=== PATIENT | female | born 1940 | race Caucasian/White ===

== ENCOUNTER 2017-03-19 13:29 | Day surgery (SDC) | payer MEDICARE, OTHER ==
[~2017-03-19 13:29] MED LIST: DIPHENHYDRAMINE HCL 50 MG/ML VIAL ONE; EPINEPHRINE INJ 1 MG/10 ML DISP.SYRIN ONE; FENTANYL CITRATE INJ/PF 100 MCG/2 ML AMPUL ONE; FLUMAZENIL INJ 0.5 MG/5 ML VIAL ONE; GLUCAGON,HUMAN RECOMB 1 MG INJ ONE; NALOXONE HCL INJ/PF 0.4 MG/1 ML SDV ONE; ONDANSETRON HCL INJ/PF 4 MG/2 ML SDV ONE
[2017-03-19] MEDS: MIDAZOLAM 2 MG/2 ML INJ ONE ×2 (14:02→14:06)
--- NOTE | 2017-03-19 14:13 | Operative Report ---
Operative Report DATE OF SURGERY: 03/19/17 Operative Report: The risks benefits and alternatives of the procedure explained to the patient in detail and informed consent is obtained.A GIF Olympus video scope was inserted into the patient's mouth and hypopharynx, the esophagus is identified intubated and insufflated, the scope was then advanced through the esophagus stomach and duodenum ,retroflexion maneuver is done, the esophagus stomach and first and second portions of the duodenum examined PREOPERATIVE DIAGNOSIS: Epigastric pain POSTOPERATIVE DIAGNOSIS: Gastritis, duodenitis. Biopsies obtained to rule out for Helicobacter pylori OPERATION: EGD with biopsy SURGEON: TIERNEY COLBY ANESTHESIA: Moderate Sedation - 4 mg of Versed, 25 mcg of fentanyl. Conscious sedation monitoring time 30 minutes TISSUE REMOVED OR ALTERED: Gastric mucosal specimen obtained to rule out Helicobacter pylori COMPLICATIONS: None. ESTIMATED BLOOD LOSS: None. INTRAOPERATIVE FINDINGS: As described above. PROCEDURE: Patient tolerated the procedure well. No immediate postprocedure complications are noted. Patient discharged in good condition. Discharge date 03/19/2017. Discharge diet: Regular. Discharge activity: Regular. 2-3 week follow-up to discuss findings. Patient is instructed to call the office or proceed to the emergency room should there be any further problems or questions. We will wait on biopsies.
[2017-03-19 15:08] VITALS: BP 107/56
== END 2017-03-19 15:20 | disposition home or self-care (01) ==
LOC: END 13:29
PROVIDERS: ATTEND Internal Medicine Gastroenterology
PROC: 0DB68ZX Excision of Stomach, Via Natural or Artificial Opening Endoscopic, Diagnostic (ICD-10-PCS; principal; 2017-03-19 14:00)
DX: K31.7 Polyp of stomach and duodenum (principal); K29.70 Gastritis, unspecified, without bleeding; K29.80 Duodenitis without bleeding; I10 Essential (primary) hypertension; Z79.899 Other long term (current) drug therapy; Z87.891 Personal history of nicotine dependence; Z79.82 Long term (current) use of aspirin; Z79.51 Long term (current) use of inhaled steroids
CPT/HCPCS: 43239; 96375; 88342 ×2; 88305 ×2; J2250; J3010; J0171; J1200; J1610; J2310; J2405; J3490

== ENCOUNTER 2017-10-30 16:47 | Emergency (ER) | payer MEDICARE, OTHER ==
[2017-10-30] MEDS ORDERED: ALBUTEROL SULFATE 0.083% NEB 2.5 MG/3 ML AMPUL NEB ONE (16:58)
--- NOTE | 2017-10-30 17:07 | ER Document Report ---
ED Respiratory Problem - General Chief Complaint: Shortness Of Breath Stated Complaint: DIFFICULTY BREATHING Time Seen by Provider: 10/30/17 16:57 Notes: The patient is a 77-year-old female, past medical history COPD, CHF, chronic pain, presents with 2 days of increasing shortness of breath and wheezing. When EMS arrived, she was tachypneic and appeared dusky. She was placed on CPAP and given 3 duonebs, 125 mg Solu-Medrol and 2 g magnesium with some improvement of her tachypnea. Patient denies chest pain, leg swelling, nausea, vomiting, fevers, back pain, abdominal pain or rash. TRAVEL OUTSIDE OF THE [place] IN LAST 30 DAYS: No - Related Data Allergies/Adverse Reactions: No Known Allergies Allergy (Verified 10/30/17 17:19) Past Medical History - General Information source: Patient - Social History Smoking Status: Unknown if Ever Smoked Family History: Reviewed & Not Pertinent - Past Medical History Cardiac Medical History: Reports: Hx Atrial Fibrillation, Hx Heart Attack, Hx Hypercholesterolemia, Hx Hypertension - medicated Denies: Hx Coronary Artery Disease Pulmonary Medical History: Reports: Hx Bronchitis, Hx COPD, Hx Pneumonia - 2015 Denies: Hx Asthma Neurological Medical History: Denies: Hx Cerebrovascular Accident, Hx Seizures Malignancy Medical History: Reports: Hx Cervical Cancer GI Medical History: Reports: Hx Gastroesophageal Reflux Disease, Hx Ulcer. Denies: Hx Hepatitis, Hx Hiatal Hernia Musculoskeltal Medical History: Reports Hx Arthritis Psychiatric Medical History: Reports: Hx Depression Infectious Medical History: Denies: Hx Hepatitis Past Surgical History: Reports: Hx Abdominal Surgery - mesenteric bypass, Hx Appendectomy, Hx Cardiac Surgery - Stent, Hx Cholecystectomy, Hx Genitourinary Surgery - lower intestine gortex replacement, Hx Orthopedic Surgery - right shoulder sx, bilateral foot sx for spurs. Denies: Hx Hysterectomy, Hx Mastectomy, Hx Open Heart Surgery, Hx Pacemaker - Immunizations Hx Diphtheria, Pertussis, Tetanus Vaccination: No Hx Pneumococcal Vaccination: 07/01/10 Review of Systems - Review of Systems Notes: REVIEW OF SYSTEMS: CONSTITUTIONAL: -fevers, -chills EENT: -eye pain, -difficulty swallowing, -nasal congestion CARDIOVASCULAR: -chest pain, -syncope. RESPIRATORY: +cough, +SOB GASTROINTESTINAL: -abdominal pain, -nausea, -vomiting, -diarrhea GENITOURINARY: -dysuria, -hematuria MUSCULOSKELETAL: -back pain, -neck pain SKIN: -rash or skin lesions. HEMATOLOGIC: -easy bruising or bleeding. LYMPHATIC: -swollen, enlarged glands. NEUROLOGICAL: -altered mental status or loss of consciousness, -headache, - neurologic symptoms PSYCHIATRIC: -anxiety, -depression. ALL OTHER SYSTEMS REVIEWED AND NEGATIVE. Physical Exam - Vital signs Vitals: Pulse BP Pulse Ox 113 H 117/70 100 10/30/17 16:55 10/30/17 16:55 10/30/17 16:55 - Notes Notes: PHYSICAL EXAMINATION: GENERAL: Moderate respiratory distress. HEAD: Atraumatic, normocephalic. EYES: Pupils equal round and reactive to light, extraocular movements intact, sclera anicteric, conjunctiva are normal. ENT: nares patent, oropharynx clear without exudates. Moist mucous membranes. NECK: Normal range of motion, supple without lymphadenopathy LUNGS: Tachypnea, diffuse wheezing, speaking in 2 word sentences. HEART: Irregularly, irregular rhythm. ABDOMEN: Soft, nontender, normoactive bowel sounds. No guarding, no rebound. No masses appreciated. EXTREMITIES: Normal range of motion, no pitting or edema. No cyanosis. NEUROLOGICAL: Cranial nerves grossly intact. Normal speech. Normal sensory and motor exams. PSYCH: Normal mood, normal affect. SKIN: Warm, Dry, normal turgor, no rashes or lesions noted. Course - Re-evaluation Re-evalutation: Patient found to be in respiratory distress with diffuse wheezing. She was switched from CPAP to BiPAP with some improvement of her symptoms. She received Solu-Medrol, magnesium and 3 duonebs by EMS prior to arrival. Patient was switched off BiPAP to 2 L nasal cannula, which she sometimes wears at home, without any respiratory distress. Her lung sounds are completely clear she is not tachypneic. Patient is tachycardic after her multiple beta- agonists. Provided her a home dose of her metoprolol for her A. fib. Offered patient admission, but she is adamant that she does not want to stay. Her blood work is unremarkable and chest x-ray does not show an infiltrate. She has an appointment with her primary care physician tomorrow morning. With her well appearance after the breathing treatments, will discharge patient home with very strict return precautions. She is mildly tachycardic to the low 100s on discharge, which is most likely related to the albuterol. Considered PE, but less likely with complete resolution of her dyspnea after her COPD treatments. Instructed her to use albuterol every 2 hours as needed and continue her steroids. She will take her metoprolol in the morning and have her heart rate rechecked at the primary care office. - Vital Signs Vital signs: Temp Pulse Resp BP Pulse Ox 98.9 F 113 H 21 H 98/78 L 97 10/30/17 17:00 10/30/17 16:55 10/30/17 20:01 10/30/17 20:01 10/30/17 20:01 - Laboratory Result Diagrams: 10/30/17 16:59 10/30/17 16:59 Laboratory results interpreted by me: 10/30/17 10/30/17 10/30/17 16:59 16:59 17:38 WBC 12.0 H Hgb 11.3 L Hct 34.1 L Seg Neutrophils % 79.1 H Lymphocytes % 11.6 L Absolute Neutrophils 9.5 H Sodium 133.1 L Chloride 91 L BUN 39 H Est GFR ( Amer) 58 L Est GFR (Non-Af Amer) 48 L Glucose 121 H POC Glucose 126 H Direct Bilirubin 0.6 H Urine Protein Urine Blood Ur Leukocyte Esterase 10/30/17 19:59 WBC Hgb Hct Seg Neutrophils % Lymphocytes % Absolute Neutrophils Sodium Chloride BUN Est GFR ( Amer) Est GFR (Non-Af Amer) Glucose POC Glucose Direct Bilirubin Urine Protein 30 H Urine Blood SMALL H Ur Leukocyte Esterase TRACE H - Diagnostic Test Radiology reviewed: Image reviewed, Reports reviewed Radiology results interpreted by me: CXR: NAD Discharge - Discharge Clinical Impression: COPD with exacerbation Condition: Stable Disposition: HOME, SELF-CARE Additional Instructions: BRONCHITIS WITH BRONCHOSPASM (WHEEZING): You have bronchitis with bronchospasm (wheezing). Sometimes people develop wheezing with a chest cold. This occurs either because of an underlying tendency toward asthma or because the virus itself irritates the bronchial tubes. This irritation causes cough, shortness of breath, and wheezing. Emergency treatment of bronchospasm may include adrenaline shots or bronchodilator aerosol. You may feel lightheaded and have a rapid pulse for an hour or two. Rest and get plenty of fluids. At home, we'll treat you with a bronchodilator inhaler. Corticosteroids may be required for some patients. Until you recover, avoid chemical fumes, dusts, pollens, and exercising in very cold or dry air. If you smoke, stop now! Most cases of bronchitis get better without antibiotics. We prescribe antibiotics when we believe bacteria are damaging your airways, or if there's high risk the bronchitis will worsen into pneumonia. Increase your fluid intake. A cool mist humidifier may make your lungs more comfortable. An expectorant (cough medicine that loosens phlegm) can help. Repeated episodes of bronchitis and bronchospasm may result in lung damage -- for example, chronic bronchitis, recurrent pneumonias, or emphysema. If you develop a fever, increased wheezing, chest pain, or severe shortness of breath, you should contact the doctor immediately. INHALED BRONCHODILATORS: You have received a treatment of and/or prescription for an inhaled bronchodilator -- a medication which stimulates the airways in the lung to dilate. This improves the flow of air in asthma, bronchitis, and emphysema. These medicines have some similarity to adrenaline, and can cause similar side effects: shakiness, racing heart, and a sense of nervousness. These side effects decrease with time. Contact your doctor if these side effects are severe. Do not over-use the medicine. Too-frequent use of the inhaler may make it ineffective. Call your doctor if the inhaler is not controlling your symptoms at the prescribed doses. STEROID MEDICATION: You have been given an injection of or oral medicine of the cortisone/ steroid class. This medication is used to control inflammation or allergy. Magdaleno t is usually only given for a short period of time, until the acute process subsides. There are usually no side effects from short-term use of cortisone-like medications. Some persons feel an increased sense of well-being and are not sleepy at bedtime. Long-term use of cortisone medications is best avoided, unless required for a severe condition. If your condition does not remit, or relapses after the course of corticosteroid medication, you should consult your physician. USE OF ACETAMINOPHEN (Tylenol): Acetaminophen may be taken for pain relief or fever control. It's much safer than aspirin, offering a wider range of "safe" dosages. It is safe during . Some brand names are Tylenol, Panadol, Datril, Anacin 3, Tempra, and Liquiprin. Acetaminophen can be repeated every four hours. The following are maximum recommended dosages: >89 pounds or adults 650 mg to 900 mg Acetaminophen can be repeated every four hours. Maximum dose not to exceed 4000 mg a day. SMOKING: If you smoke, you should stop smoking. The tar and chemicals in cigarette smoke are harmful. Smoking has been shown to cause: emphysema chronic bronchitis lung cancer mouth and throat cancer stomach and pancreas cancer premature aging defects In addition, smoking increases ear and lung infections in children of smokers. FOLLOW-UP CARE: If you have been referred to a physician for follow-up care, call the physician s office for an appointment as you were instructed or within the next two days. If you experience worsening or a significant change in your symptoms, notify the physician immediately or return to the Emergency Department at any time for re-evaluation. Prescriptions: Albuterol Sulfate [Proair HFA Inhalation Aerosol 8.5 gm MDI] 2 puff IH Q4H PRN # 1 mdi PRN Reason: Prednisone [Deltasone 10 mg Tablet] 10 mg PO ASDIR PRN #21 tablet PRN Reason:
[2017-10-30 17:16] LABS: VENOUS BLOOD HCO3 27.6 mmol/L (20-32); VENOUS BLOOD PCO2 47.9 mmHg (35-63); VENOUS BLOOD PH 7.38 (7.30-7.42)
[2017-10-30 17:25] LABS: ABSOLUTE LYMPHOCYTES (AUTO) 1.4 10^3/uL (0.5-4.7); ABSOLUTE MONOCYTES (AUTO) 1.1 10^3/uL (0.1-1.4); ABSOLUTE NEUT (AUTO) 9.5 10^3/uL (1.7-8.2); BASOPHILS % (AUTO) 0.1 % (0-2); EOSINOPHILS % (AUTO) 0.3 % (0-6); HEMATOCRIT 34.1 % (36.0-47.0); HEMOGLOBIN 11.3 g/dL (12.0-15.5); LYMPHOCYTES % (AUTO) 11.6 % (13-45); MEAN CORPUSCULAR HEMOGLOBIN 29.3 pg (27.0-33.4); MEAN CORPUSCULAR VOLUME 89 fl (80-97); MONOCYTES % (AUTO) 8.9 % (3-13); PLATELET COUNT 185 10^3/uL (150-450); RED BLOOD COUNT 3.84 10^6/uL (3.72-5.28); RED CELL DISTRIBUTION WIDTH 13.3 % (11.5-14.0); SEGMENTED NEUTROPHILS % (AUTO) 79.1 % (42-78); TOTAL CELLS COUNTED % (AUTO) 100 %
[2017-10-30 17:33] LABS: INTERNATIONAL RATION (INR) 1.13; PROTHROMBIN TIME 15.1 SEC (11.4-15.4)
[2017-10-30 17:34] LABS: ALANINE AMINOTRANSFERASE 25 U/L (9-52); ALBUMIN 3.9 g/dL (3.5-5.0); ALKALINE PHOSPHATASE 101 U/L (38-126); ANION GAP 13 (5-19); ASPARTATE AMINO TRANSFERASE 20 U/L (14-36); BILIRUBIN,DIRECT 0.6 mg/dL (0.0-0.4); BILIRUBIN,TOTAL 0.6 mg/dL (0.2-1.3); BLOOD UREA NITROGEN 39 mg/dL (7-20); CARBON DIOXIDE 29 mmol/L (22-30); CHLORIDE 91 mmol/L (98-107); GLUCOSE 121 mg/dL (75-110); POTASSIUM 4.5 mmol/L (3.6-5.0); SODIUM 133.1 mmol/L (137-145); TOTAL PROTEIN 7.5 g/dL (6.3-8.2)
--- NOTE | 2017-10-30 17:44 | RADIOLOGY REPORT (SQ) ---
EXAM DESCRIPTION: CHEST SINGLE VIEW portable COMPLETED DATE/TIME: 10/30/2017 5:29 pm REASON FOR STUDY: SOB COMPARISON: 07/23/2015 EXAM PARAMETERS: NUMBER OF VIEWS: One view. TECHNIQUE: Single frontal radiographic view of the chest acquired. Portable RADIATION DOSE: NA LIMITATIONS: None. FINDINGS: LUNGS AND PLEURA: No opacities, masses or pneumothorax. No pleural effusion. MEDIASTINUM AND HILAR STRUCTURES: No masses. Contour normal. HEART AND VASCULAR STRUCTURES: Heart normal in size. Normal vasculature. BONES: No acute findings. HARDWARE: None in the chest. OTHER: No other significant finding. IMPRESSION: NO ACUTE RADIOGRAPHIC FINDING IN THE CHEST. TECHNICAL DOCUMENTATION: JOB ID: [id number] [employer]- All Rights Reserved Reading location - IP/workstation name: [email or web address]
[2017-10-30] MEDS ORDERED: NORMAL SALINE 500 ML IV ONE (19:02)
[2017-10-30] MEDS ORDERED: METOPROLOL TARTRATE 50 MG TABLET PO ONE (19:30)
[2017-10-30] MEDS ORDERED: METOPROLOL TARTRATE PF/INJ 5 MG/5 ML SDV IV ONE (19:31)
[2017-10-30 20:32] LABS: APPEARANCE,URINE SLIGHTLY-CLOUDY; BILIRUBIN,URINE NEGATIVE (NEGATIVE); COLOR,URINE YELLOW; GLUCOSE, URINE NEGATIVE (NEGATIVE); KETONES,URINE NEGATIVE (NEGATIVE); LEUKOCYTE ESTERASE,URINE TRACE (NEGATIVE); NITRITE,URINE NEGATIVE (NEGATIVE); PROTEIN,URINE 30 mg/dL (NEGATIVE); URINE SPECIFIC GRAVITY 1.015; UROBILINOGEN,URINE NEGATIVE mg/dL (<2.0)
[2017-10-30 21:25] VITALS: BP 124/62
--- NOTE | 2017-10-30 23:42 | EKG REPORT ---
SEVERITY:- ABNORMAL ECG - ATRIAL FIBRILLATION LEFT AXIS DEVIATION : Confirmed by: Abdiel Restrepo 30-Oct-2017 23:41:37
== END 2017-10-30 21:25 | disposition home or self-care (01) ==
LOC: ER 16:47
DX: J44.1 Chronic obstructive pulmonary disease with (acute) exacerbation (principal); R06.02 Shortness of breath; R05 Cough; I10 Essential (primary) hypertension
CPT/HCPCS: 93005; 94640; 99285; 96361; 96374; 36415; 87040; 87086; 82962; 85025; 85610; 80053; 81001; 82803; 83605; 71045; 93010; 94660; J3490; A9270 ×2; J7040

== ENCOUNTER 2017-10-31 14:28 | Inpatient (IN) | payer MEDICARE, OTHER ==
[2017-10-31] MEDS ORDERED: IPRATROPIUM/ALBUTEROL 0.5-2.5 MG/3 ML AMPUL NEB ONE (14:41)
--- NOTE | 2017-10-31 14:41 | ER Document Report ---
ED Respiratory Problem - General Chief Complaint: Shortness Of Breath Stated Complaint: RESPIRATORY DISTRESS Time Seen by Provider: 10/31/17 14:31 Notes: The patient is a 77-year-old female, past medical history COPD, CHF, A. fib, presents with increasing shortness of breath for the past few hours. She was given 125 mg IV Solumedrol and 2 duonebs by EMS prior to arrival and she feels slightly better. Patient refused admission last night after similar episode after she was feeling much better with breathing treatments, steroids and magnesium. She was to see her primary care physician today, but the patient said that her PMD was sick today and rescheduled her appointment. Patient still having coughing and some wheezing on arrival, but denies chest pain, syncope, leg swelling, nausea, vomiting or fevers. TRAVEL OUTSIDE OF THE [place] IN LAST 30 DAYS: No - Related Data Allergies/Adverse Reactions: No Known Allergies Allergy (Verified 10/31/17 14:59) Past Medical History - General Information source: Patient, Emergency Med Personnel - Social History Smoking Status: Former Smoker Family History: Reviewed & Not Pertinent - Past Medical History Cardiac Medical History: Reports: Hx Atrial Fibrillation, Hx Heart Attack, Hx Hypercholesterolemia, Hx Hypertension - medicated Denies: Hx Coronary Artery Disease Pulmonary Medical History: Reports: Hx Bronchitis, Hx COPD, Hx Pneumonia - 2014 Denies: Hx Asthma Neurological Medical History: Denies: Hx Cerebrovascular Accident, Hx Seizures Renal/ Medical History: Denies: Hx Peritoneal Dialysis Malignancy Medical History: Reports: Hx Cervical Cancer GI Medical History: Reports: Hx Gastroesophageal Reflux Disease, Hx Ulcer. Denies: Hx Hepatitis, Hx Hiatal Hernia Musculoskeltal Medical History: Reports Hx Arthritis Psychiatric Medical History: Reports: Hx Depression Infectious Medical History: Denies: Hx Hepatitis Past Surgical History: Reports: Hx Abdominal Surgery - mesenteric bypass, Hx Appendectomy, Hx Cardiac Surgery - Stent, Hx Cholecystectomy, Hx Genitourinary Surgery - lower intestine gortex replacement, Hx Orthopedic Surgery - right shoulder sx, bilateral foot sx for spurs. Denies: Hx Hysterectomy, Hx Mastectomy, Hx Open Heart Surgery, Hx Pacemaker - Immunizations Hx Diphtheria, Pertussis, Tetanus Vaccination: No Hx Pneumococcal Vaccination: 07/01/10 Review of Systems - Review of Systems Notes: REVIEW OF SYSTEMS: CONSTITUTIONAL: -fevers, -chills EENT: -eye pain, -difficulty swallowing, -nasal congestion CARDIOVASCULAR: -chest pain, -syncope. RESPIRATORY: +cough, +SOB GASTROINTESTINAL: -abdominal pain, -nausea, -vomiting, -diarrhea GENITOURINARY: -dysuria, -hematuria MUSCULOSKELETAL: -back pain, -neck pain SKIN: -rash or skin lesions. HEMATOLOGIC: -easy bruising or bleeding. LYMPHATIC: -swollen, enlarged glands. NEUROLOGICAL: -altered mental status or loss of consciousness, -headache, - neurologic symptoms PSYCHIATRIC: -anxiety, -depression. ALL OTHER SYSTEMS REVIEWED AND NEGATIVE. Physical Exam - Vital signs Vitals: Temp 97.8 F 10/31/17 14:28 - Notes Notes: PHYSICAL EXAMINATION: GENERAL: Mild tachypnea. HEAD: Atraumatic, normocephalic. EYES: Pupils equal round and reactive to light, extraocular movements intact, sclera anicteric, conjunctiva are normal. ENT: nares patent, oropharynx clear without exudates. Moist mucous membranes. NECK: Normal range of motion, supple without lymphadenopathy LUNGS: Mild tachypnea, diffuse wheezing. HEART: Irregular rhythm, mild tachycardia ABDOMEN: Soft, nontender, normoactive bowel sounds. No guarding, no rebound. No masses appreciated. EXTREMITIES: Normal range of motion, no pitting or edema. No cyanosis. NEUROLOGICAL: Cranial nerves grossly intact. Normal speech. Normal sensory and motor exams. PSYCH: Normal mood, normal affect. SKIN: Warm, Dry, normal turgor, no rashes or lesions noted. Course - Re-evaluation Re-evalutation: Patient seen immediately on arrival. Her wheezing resolved after 3 duonebs and she received 125 mg Solu-Medrol by EMS prior to arrival. Because this is her second visit in 2 days and her home albuterol and prednisone treatment is not helping, she has failed outpatient treatment for her acute exacerbation of her COPD. She requires admission for further evaluation and treatment. Patient is also back in A. fib with RVR with heart rate in the 110s-120s. This is most likely from her multiple albuterol treatments. Will continue to monitor and hold off on IV treatment for her A. fib at this time. She takes metoprolol 50 mg twice a day, and this may be contributing to her COPD exacerbations. Her BODY STYLIST is Cheryl Mojica. 10/31/17 16:[address] Ewing (Hospitalist) and will bring patient in for Obs to Tele. - Vital Signs Vital signs: Temp Pulse Resp BP Pulse Ox 97.8 F 118 H 20 94/47 L 97 10/31/17 14:28 10/31/17 21:05 10/31/17 21:31 10/31/17 21:31 10/31/17 21:31 - Laboratory Result Diagrams: 10/31/17 15:10 10/31/17 15:10 Laboratory results interpreted by me: 10/31/17 10/31/17 10/31/17 15:10 15:10 15:10 RBC 3.69 L Hgb 10.8 L Hct 33.0 L Seg Neuts % (Manual) 84 H Lymphocytes % (Manual) 5 L Abs Lymphs (Manual) 0.4 L Sodium 136.3 L Chloride 93 L BUN 42 H Glucose 142 H NT-Pro-B Natriuret Pep 6560 H Total Protein 6.0 L Albumin 3.3 L - Diagnostic Test Radiology reviewed: Image reviewed, Reports reviewed Radiology results interpreted by me: CXR: NAD - EKG Interpretation by Me EKG shows normal: [place], Intervals, QRS Complexes, ST-T Waves Rate: Tachycardia Rhythm: A.Fib Discharge - Discharge Clinical Impression: Atrial fibrillation with rapid ventricular response, Failure of outpatient treatment, Acute exacerbation of chronic obstructive pulmonary disease (COPD) Condition: Stable Disposition: ADMITTED OBSERVATION Admitting Provider: Hospitalist - [facility] Unit Admitted: Telemetry
[2017-10-31 15:34] LABS: VENOUS BLOOD BASE EXCESS 2.1 mmol/L; VENOUS BLOOD HCO3 29.1 mmol/L (20-32); VENOUS BLOOD PCO2 57.1 mmHg (35-63); VENOUS BLOOD PH 7.33 (7.30-7.42)
[2017-10-31 15:35] LABS: HEMOGLOBIN 10.8 g/dL (12.0-15.5); MEAN CORPUSCULAR HEMOGLOBIN 29.4 pg (27.0-33.4); MEAN CORPUSCULAR HGB CONC 32.9 g/dL (32.0-36.0); MEAN CORPUSCULAR VOLUME 89 fl (80-97); PLATELET COUNT 208 10^3/uL (150-450); RED BLOOD COUNT 3.69 10^6/uL (3.72-5.28); RED CELL DISTRIBUTION WIDTH 13.5 % (11.5-14.0); WHITE BLOOD COUNT 8.5 10^3/uL (4.0-10.5)
--- NOTE | 2017-10-31 15:45 | RADIOLOGY REPORT (SQ) ---
EXAM DESCRIPTION: CHEST SINGLE VIEW COMPLETED DATE/TIME: 10/31/2017 3:20 pm REASON FOR STUDY: SOB COMPARISON: 10/30/2017 EXAM PARAMETERS: NUMBER OF VIEWS: One view. TECHNIQUE: Single frontal radiographic view of the chest acquired. RADIATION DOSE: NA LIMITATIONS: None. FINDINGS: LUNGS AND PLEURA: No opacities, masses or pneumothorax. No pleural effusion. I cannot exc lude a component of obstructive lung disease. MEDIASTINUM AND HILAR STRUCTURES: No masses. Contour normal. HEART AND VASCULAR STRUCTURES: Heart normal in size. Normal vasculature. BONES: No acute findings. HARDWARE: None in the chest. OTHER: No other significant finding. IMPRESSION: No significant interval change. No acute findings. Other findings as noted above TECHNICAL DOCUMENTATION: JOB ID: [id number] [employer]- All Rights Reserved Reading location - IP/workstation name: [email or web address]
[2017-10-31 15:51] LABS: ALANINE AMINOTRANSFERASE 28 U/L (9-52); ALBUMIN 3.3 g/dL (3.5-5.0); ALKALINE PHOSPHATASE 98 U/L (38-126); ANION GAP 15 (5-19); ASPARTATE AMINO TRANSFERASE 29 U/L (14-36); BILIRUBIN,DIRECT 0.4 mg/dL (0.0-0.4); BILIRUBIN,TOTAL 0.4 mg/dL (0.2-1.3); BLOOD UREA NITROGEN 42 mg/dL (7-20); CALCIUM 9.5 mg/dL (8.4-10.2); CARBON DIOXIDE 28 mmol/L (22-30); CHLORIDE 93 mmol/L (98-107); CREATINE KINASE 34 U/L (30-135); GLUCOSE 142 mg/dL (75-110); POTASSIUM 4.2 mmol/L (3.6-5.0); SODIUM 136.3 mmol/L (137-145)
[2017-10-31 15:54] LABS: ABSOLUTE LYMPHOCYTES# (MANUAL) 0.4 10^3/uL (0.5-4.7); ABSOLUTE MONOCYTES # (MANUAL) 0.9 10^3/uL (0.1-1.4); ABSOLUTE NEUTROPHILS# (MANUAL) 7.1 10^3/uL (1.7-8.2); BASOPHILS % (MANUAL) 0 % (0-2); EOSINOPHILS % (MANUAL) 0 % (0-6); LYMPHOCYTES % (MANUAL) 5 % (13-45); MONOCYTES % (MANUAL) 11 % (3-13); SEGMENTED NEUTROPHILS % (MAN) 84 % (42-78); TOTAL CELLS COUNTED 100
[2017-10-31 15:55] LABS: PLATELET COMMENT ADEQUATE; TOXIC GRANULATION SLIGHT
[2017-10-31] MEDS ORDERED: NORMAL SALINE 500 ML IV ONE (16:34)
[2017-10-31] MEDS ORDERED: OXYCODONE-ACETAMINOPHEN 5-325 MG TABLET PO PRN (16:57)
[2017-10-31] MEDS ORDERED: ZOLPIDEM TARTRATE 5 MG TABLET PO PRN (16:57)
[2017-10-31] MEDS ORDERED: ONDANSETRON HCL INJ/PF 4 MG/2 ML SDV IV PRN (16:57)
[2017-10-31] MEDS ORDERED: ACETAMINOPHEN 325 MG TABLET PO PRN (16:57)
[2017-10-31] MEDS: METHYLPREDNISOLONE INJ 40 MG/1 ML SDV IV SCH (17:37)
--- NOTE | 2017-10-31 17:38 | PDOC H&P ---
History of Present Illness Admission Date/PCP: 10/31/17 16:59 Patient complains of: Shortness of breath since Saturday History of Present Illness: JOSE DAVID DUMONT is a 77 year old female arrived to emergency room via ambulance complaining of persistent shortness of breath which got progressively worse since Saturday. Patient presented to emergency room yesterday with same complaints. In addition patient complains of productive cough which she describes as yellow brownish color. Patient also had been having postnasal discharge and sore throat. Patient denies smoking. She has a history of COPD for which she uses an inhaler. She denies fever or chills. She denies exposure to sick contacts. Patient admits as having history of congestive heart failure. Yesterday, patient was treated with BiPAP, nebulizer treatment, steroids and BiPAP with good improvement. Patient was offered to be admitted but she opted to go home. Daughter states that patient went to bed and was not doing well. Today patient contacted her daughter and asked her to call 911. Patient states that she uses oxygen only at night. Patient denies chest pain. She had been suffering from swelling of her legs for several months. Due to her presentation the hospitalist service was consulted and prompted to admit for further management Past Medical History Cardiac Medical History: Reports: Atrial Fibrillation, Congestive Heart Failure , Coronary Artery Disease, Myocardial Infarction, Hyperlipidema, Hypertension - medicated Pulmonary Medical History: Reports: Bronchitis, Chronic Obstructive Pulmonary Disease (COPD), Pneumonia - 2014 Denies: Asthma EENT Medical History: Reports: None Neurological Medical History: Reports: Ischemic CVA Denies: Seizures Endocrine Medical History: Reports: None Renal/ Medical History: Reports: None Malignancy Medical History: Reports: Cervical Cancer GI Medical History: Reports: Gastroesophageal Reflux Disease Denies: Hepatitis, Hiatal Hernia Musculoskeltal Medical History: Reports: Arthritis Skin Medical History: Reports: None Psychiatric Medical History: Reports: Depression Traumatic Medical History: Reports: None Hematology: Denies: Anemia, Sickle Cell Disease Infectious Medical History: Reports: None Past Surgical History Past Surgical History: Reports: Appendectomy, Cardiac Catheterization, Cholecystectomy, Orthopedic Surgery - right shoulder sx, bilateral foot sx for spurs Denies: Amputation, Hysterectomy, Mastectomy, Pacemaker Social History Information Source: Patient Lives with: Spouse/Significant other Smoking Status: Former Smoker Frequency of Alcohol Use: None Hx Recreational Drug Use: No Drugs: None Hx Prescription Drug Abuse: No - Advance Directive Resuscitation Status: Full Code Family History Family History: Hypertension Parental Family History Reviewed: Yes Children Family History Reviewed: Yes Sibling(s) Family History Reviewed.: Yes Medication/Allergy Home Medications: Metaxalone [Skelaxin 800 mg Tablet] 800 mg PO Q8HP PRN 01/14/13 Morphine Sulfate [Morphine Sulfate ER] 30 mg PO Q8 02/04/15 Oxycodone HCl/Acetaminophen [Oxycodone-Acetaminophen 10-325] 1 each PO Q8HP PRN 02/04/15 Sennosides/Docusate Sodium [Senna-S Tablet] 1 each PO DAILY PRN 02/04/15 Atorvastatin Calcium [Lipitor 10 mg Tablet] 10 mg PO QHS #0 tablet 02/23/15 Ascorbic Acid [Vitamin C] 1,000 mg PO DAILY 07/22/15 Aspirin [Aspirin EC] 81 mg PO DAILY 07/22/15 Calcium Carbonate 500 mg PO DAILY 07/22/15 Cholecalciferol (Vitamin D3) [Vitamin D3] 2,000 unit PO DAILY 07/22/15 Ferrous Sulfate [Feosol 325 mg Tablet] 325 mg PO DAILY 07/22/15 Metoprolol Tartrate [Lopressor 50 mg Tablet] 50 mg PO Q12 07/22/15 Multivitamin [Multivitamins] 1 each PO DAILY 07/22/15 Lisinopril 10 mg PO DAILY 03/19/17 Albuterol Sulfate [Proair HFA Inhalation Aerosol 8.5 gm MDI] 2 puff IH Q4HP PRN 10/31/17 Fluoxetine HCl [Prozac 20 mg Capsule] 20 mg PO 10/31/17 Furosemide [Lasix 20 mg Tablet] 20 mg PO 10/31/17 Lorazepam [Ativan 0.5 mg Tablet] 0.5 mg PO BIDP PRN 10/31/17 Mesalamine [Lialda] 1.2 gm PO DAILY 10/31/17 Pantoprazole Sodium [Protonix] 40 mg PO DAILY 10/31/17 Promethazine HCl [Phenergan 25 mg Tablet] 25 mg PO Q12HP PRN 10/31/17 Spironolactone [Aldactone 25 mg Tablet] 25 mg PO DAILY 10/31/17 Allergies/Adverse Reactions: No Known Allergies Allergy (Verified 10/31/17 14:59) Review of Systems Constitutional: PRESENT: weakness. ABSENT: fever(s), headache(s) Eyes: ABSENT: visual disturbances Ears: ABSENT: hearing changes Nose, Mouth, and Throat: PRESENT: sore throat. ABSENT: mouth pain Cardiovascular: ABSENT: chest pain Respiratory: PRESENT: cough, dyspnea Gastrointestinal: ABSENT: abdominal pain, nausea, vomiting Musculoskeletal: ABSENT: back pain, joint swelling Integumentary: ABSENT: pruritus Neurological: ABSENT: focal weakness, weakness Physical Exam Vital Signs: Temp Pulse Resp BP Pulse Ox 97.8 F 20 111/51 L 99 10/31/17 14:28 10/31/17 16:02 10/31/17 16:02 10/31/17 16:02 General appearance: PRESENT: cooperative, mild distress, thin Head exam: PRESENT: atraumatic Eye exam: PRESENT: conjunctiva pink, EOMI, PERRLA Ear exam: PRESENT: normal external ear exam Mouth exam: PRESENT: moist Neck exam: PRESENT: full ROM. ABSENT: JVD, lymphadenopathy, tenderness Respiratory exam: PRESENT: decreased breath sounds - Scattered wheezes and crackles noted throughout, tachypnea. ABSENT: chest wall tenderness Cardiovascular exam: PRESENT: RRR. ABSENT: diastolic murmur, systolic murmur Vascular exam: PRESENT: normal capillary refill GI/Abdominal exam: PRESENT: normal bowel sounds, soft. ABSENT: tenderness Extremities exam: PRESENT: full ROM. ABSENT: pedal edema Musculoskeletal exam: PRESENT: ambulatory Neurological exam: PRESENT: alert, awake, oriented to person, oriented to place , oriented to time, oriented to situation, CN II-XII grossly intact Psychiatric exam: PRESENT: appropriate affect, normal mood Skin exam: PRESENT: intact, pallor Results Impressions: Chest X-Ray 10/31/17 14:31 IMPRESSION: No significant interval change. No acute findings. Other findings as noted above Assessment & Plan - Diagnosis (1) Acute exacerbation of chronic obstructive pulmonary disease (COPD) Is this a current diagnosis for this admission?: Yes Plan: Patient will be admitted and will be placed on DuoNeb's, Mucinex, IV steroids. Since concern about the possibility of an allergic process patient will be placed on Flonase and Claritin (2) Acute bronchitis Qualifiers: Bronchitis organism: unspecified organism Qualified Code(s): J20.9 - Acute bronchitis, unspecified Is this a current diagnosis for this admission?: Yes Plan: Patient will be placed on Zithromax and will follow up response (3) Chronic respiratory failure Qualifiers: Respiratory failure complication: hypoxia Qualified Code(s): J96.11 - Chronic respiratory failure with hypoxia Is this a current diagnosis for this admission?: Yes Plan: Will continue with oxygen supplementation. Patient saturating well - Time Time Spent: 30 to 50 Minutes Medications reviewed and adjusted accordingly: Yes Anticipated discharge: Home Within: within 24 hours - Inpatient Certification Based on my medical assessment, after consideration of the patient's comorbidities, presenting symptoms, or acuity I expect that the services needed warrant INPATIENT care.: No I certify that my determination is in accordance with my understanding of Medicare's requirements for reasonable and necessary INPATIENT services [42 CFR 412.3e].: Yes Medical Necessity: Significant Comorbidiites Make Outpatient Treatment Too Risky , Need Close Monitoring Due to Risk of Patient Decompensation, Need for Nebulizer Therapy and Monitoring of Response
[2017-10-31] MEDS: AZITHROMYCIN 250 MG TABLET PO SCH (18:24)
[2017-10-31] MEDS ORDERED: FLUTICASONE NASAL SPRAY 50 MCG/SPRY 120 SPRAY/16 GM NASL ONE (19:00)
[2017-10-31] MEDS: IPRATROPIUM/ALBUTEROL 0.5-2.5 MG/3 ML AMPUL NEB SCH (21:03)
[2017-10-31] MEDS ORDERED: METOPROLOL TARTRATE 50 MG TABLET PO ONE (23:30)
--- NOTE | 2017-10-31 23:39 | EKG REPORT ---
SEVERITY:- ABNORMAL ECG - ATRIAL FIBRILLATION, V-RATE 83-139 LEFT AXIS DEVIATION LOW VOLTAGE THROUGHOUT CONSIDER ANTEROSEPTAL INFARCT : Confirmed by: Abdiel Restrepo 31-Oct-2017 23:37:43
[2017-11-01] MEDS: MORPHINE SULFATE SR 30 MG TABLET PO SCH ×3 (00:05→22:06)
[2017-11-01] MEDS: LORAZEPAM 0.5 MG TABLET PO PRN ×2 (00:05→22:06)
[2017-11-01] MEDS: HEPARIN SOD (PORCINE) 5,000 UNIT/ML 1 ML SYRINGE SUBCUT SCH ×4 (00:06→22:06)
[2017-11-01] MEDS: METHYLPREDNISOLONE INJ 40 MG/1 ML SDV IV SCH ×3 (00:06→16:36)
[2017-11-01 08:18] LABS: HEMATOCRIT 33.8 % (36.0-47.0); HEMOGLOBIN 11.2 g/dL (12.0-15.5); MEAN CORPUSCULAR HEMOGLOBIN 29.3 pg (27.0-33.4); MEAN CORPUSCULAR HGB CONC 33.2 g/dL (32.0-36.0); MEAN CORPUSCULAR VOLUME 89 fl (80-97); PLATELET COUNT 221 10^3/uL (150-450); RED BLOOD COUNT 3.82 10^6/uL (3.72-5.28); RED CELL DISTRIBUTION WIDTH 13.3 % (11.5-14.0); WHITE BLOOD COUNT 9.1 10^3/uL (4.0-10.5)
[2017-11-01] MEDS: IPRATROPIUM/ALBUTEROL 0.5-2.5 MG/3 ML AMPUL NEB SCH ×3 (08:21→20:19)
[2017-11-01 08:27] LABS: ANION GAP 17 (5-19); BLOOD UREA NITROGEN 41 mg/dL (7-20); CALCIUM 9.8 mg/dL (8.4-10.2); CARBON DIOXIDE 26 mmol/L (22-30); CHLORIDE 95 mmol/L (98-107); GLUCOSE 149 mg/dL (75-110); POTASSIUM 4.5 mmol/L (3.6-5.0); SODIUM 137.7 mmol/L (137-145)
[2017-11-01 09:16] LABS: ABSOLUTE LYMPHOCYTES# (MANUAL) 0.5 10^3/uL (0.5-4.7); ABSOLUTE MONOCYTES # (MANUAL) 0.5 10^3/uL (0.1-1.4); ABSOLUTE NEUTROPHILS# (MANUAL) 8.1 10^3/uL (1.7-8.2); BAND NEUTROPHILS % (MANUAL) 5 % (3-5); BASOPHILS % (MANUAL) 0 % (0-2); EOSINOPHILS % (MANUAL) 0 % (0-6); LYMPHOCYTES % (MANUAL) 5 % (13-45); METAMYELOCYTES % (MANUAL) 1 % (0); MONOCYTES % (MANUAL) 6 % (3-13); NUCLEATED RED BLOOD CELLS 1 /100 WBC (0); PLATELET COMMENT ADEQUATE; POLYCHROMASIA SLIGHT; SEGMENTED NEUTROPHILS % (MAN) 83 % (42-78); TOTAL CELLS COUNTED 100; TOXIC GRANULATION 2+; TOXIC VACUOLATION PRESENT
[2017-11-01] MEDS: METOPROLOL TARTRATE 50 MG TABLET PO SCH ×2 (09:53→22:06)
[2017-11-01] MEDS: LORATADINE 10 MG TABLET PO SCH (09:53)
[2017-11-01] MEDS: FLUTICASONE NASAL SPRAY 50 MCG/SPRY 120 SPRAY/16 GM NASL SCH (09:54)
--- NOTE | 2017-11-01 15:07 | PDOC PROGRESS REPORT ---
Subjective Progress Note for:: 11/01/17 Subjective:: Patient complaining of still not feeling well. Complains of shortness of breath and cough. Patient also complains of having poor appetite. Review of system All organ systems evaluated and negative except as in subjective All significant laboratories and diagnostics have been reviewed Reason For Visit: AECOPD Physical Exam Vital Signs: Temp Pulse Resp BP Pulse Ox 97.7 F 122 H 20 121/54 L 99 11/01/17 08:09 11/01/17 08:21 11/01/17 08:21 11/01/17 08:09 11/01/17 08:21 Intake & Output 10/31/17 11/01/17 11/02/17 06:59 06:59 06:59 Weight 68 kg General appearance: PRESENT: no acute distress, cooperative, well-developed, well-nourished Head exam: PRESENT: atraumatic, normocephalic Eye exam: PRESENT: conjunctiva pink, EOMI, PERRLA Ear exam: PRESENT: normal external ear exam Mouth exam: PRESENT: moist Neck exam: PRESENT: full ROM. ABSENT: JVD, lymphadenopathy, tenderness Respiratory exam: PRESENT: decreased breath sounds, wheezes Cardiovascular exam: PRESENT: RRR. ABSENT: diastolic murmur, systolic murmur Vascular exam: PRESENT: normal capillary refill GI/Abdominal exam: PRESENT: normal bowel sounds, soft. ABSENT: tenderness Extremities exam: PRESENT: full ROM. ABSENT: pedal edema Musculoskeletal exam: PRESENT: ambulatory Neurological exam: PRESENT: alert, awake, oriented to person, oriented to place , oriented to time, oriented to situation, CN II-XII grossly intact Skin exam: PRESENT: normal color Results Laboratory Results: 11/01/17 07:03 11/01/17 07:03 11/01/17 11/01/17 07:03 07:03 WBC 9.1 RBC 3.82 Hgb 11.2 L Hct 33.8 L MCV 89 MCH 29.3 MCHC 33.2 RDW 13.3 Plt Count 221 Seg Neutrophils % Not Reportable Lymphocytes % Not Reportable Monocytes % Not Reportable Eosinophils % Not Reportable Basophils % Not Reportable Absolute Neutrophils Not Reportable Absolute Lymphocytes Not Reportable Absolute Monocytes Not Reportable Absolute Eosinophils Not Reportable Absolute Basophils Not Reportable Sodium 137.7 Potassium 4.5 Chloride 95 L Carbon Dioxide 26 Anion Gap 17 BUN 41 H Creatinine 0.87 Est GFR ( Amer) > 60 Est GFR (Non-Af Amer) > 60 Glucose 149 H Calcium 9.8 Magnesium 2.5 H Impressions: Chest X-Ray 10/31/17 14:31 IMPRESSION: No significant interval change. No acute findings. Other findings as noted above Assessment & Plan - Diagnosis (1) Acute exacerbation of chronic obstructive pulmonary disease (COPD) Is this a current diagnosis for this admission?: Yes Plan: Patient still tachypneic and requiring oxygen supplementation 21/01. Will continue current management will change patient to inpatient status. To order flu test (2) Acute bronchitis Qualifiers: Bronchitis organism: unspecified organism Qualified Code(s): J20.9 - Acute bronchitis, unspecified Is this a current diagnosis for this admission?: Yes Plan: Continue Zithromax (3) Chronic respiratory failure Qualifiers: Respiratory failure complication: hypoxia Qualified Code(s): J96.11 - Chronic respiratory failure with hypoxia Is this a current diagnosis for this admission?: Yes Plan: Will continue with oxygen supplementation. Will wean off oxygen as tolerated. Patient having an acute component - Time Time Spent with patient: 15-24 minutes Medications reviewed and adjusted accordingly: Yes Anticipated discharge: Home with Homehealth Within: within 48 hours - Inpatient Certification Based on my medical assessment, after consideration of the patient's comorbidities, presenting symptoms, or acuity I expect that the services needed warrant INPATIENT care.: Yes I certify that my determination is in accordance with my understanding of Medicare's requirements for reasonable and necessary INPATIENT services [42 CFR 412.3e].: Yes Medical Necessity: Need Close Monitoring Due to Risk of Patient Decompensation, Need for Nebulizer Therapy and Monitoring of Response
[2017-11-01] MEDS: AZITHROMYCIN 250 MG TABLET PO SCH (17:02)
--- NOTE | 2017-11-01 21:35 | EKG REPORT ---
SEVERITY:- ABNORMAL ECG - ATRIAL FIBRILLATION, V-RATE 87-138 VENTRICULAR PREMATURE COMPLEX LAD, CONSIDER LEFT ANTERIOR FASCICULAR BLOCK ANTERIOR INFARCT, AGE INDETERMINATE : Confirmed by: Abdiel Restrepo 01-Nov-2017 21:34:24
[2017-11-02] MEDS: METHYLPREDNISOLONE INJ 40 MG/1 ML SDV IV SCH ×3 (01:58→21:36)
[2017-11-02] MEDS: HEPARIN SOD (PORCINE) 5,000 UNIT/ML 1 ML SYRINGE SUBCUT SCH ×3 (05:37→21:36)
[2017-11-02 07:45] LABS: HEMATOCRIT 33.3 % (36.0-47.0); HEMOGLOBIN 10.8 g/dL (12.0-15.5); MEAN CORPUSCULAR HEMOGLOBIN 28.9 pg (27.0-33.4); MEAN CORPUSCULAR HGB CONC 32.6 g/dL (32.0-36.0); MEAN CORPUSCULAR VOLUME 89 fl (80-97); PLATELET COUNT 232 10^3/uL (150-450); RED BLOOD COUNT 3.75 10^6/uL (3.72-5.28); RED CELL DISTRIBUTION WIDTH 13.6 % (11.5-14.0); WHITE BLOOD COUNT 11.4 10^3/uL (4.0-10.5)
[2017-11-02 07:52] LABS: ANION GAP 10 (5-19); BLOOD UREA NITROGEN 46 mg/dL (7-20); CALCIUM 10.3 mg/dL (8.4-10.2); CARBON DIOXIDE 30 mmol/L (22-30); CHLORIDE 98 mmol/L (98-107); GLUCOSE 166 mg/dL (75-110); POTASSIUM 4.5 mmol/L (3.6-5.0); SODIUM 138.4 mmol/L (137-145)
[2017-11-02] MEDS: IPRATROPIUM/ALBUTEROL 0.5-2.5 MG/3 ML AMPUL NEB SCH ×3 (08:18→19:57)
[2017-11-02 08:35] LABS: ABSOLUTE LYMPHOCYTES# (MANUAL) 0.5 10^3/uL (0.5-4.7); ABSOLUTE MONOCYTES # (MANUAL) 0.7 10^3/uL (0.1-1.4); ABSOLUTE NEUTROPHILS# (MANUAL) 10.3 10^3/uL (1.7-8.2); BAND NEUTROPHILS % (MANUAL) 5 % (3-5); BASOPHILS % (MANUAL) 0 % (0-2); EOSINOPHILS % (MANUAL) 0 % (0-6); LYMPHOCYTES % (MANUAL) 4 % (13-45); METAMYELOCYTES % (MANUAL) 1 % (0); MONOCYTES % (MANUAL) 6 % (3-13); SEGMENTED NEUTROPHILS % (MAN) 84 % (42-78); TOTAL CELLS COUNTED 100
[2017-11-02 08:37] LABS: OVALOCYTES SLIGHT; PLATELET COMMENT ADEQUATE; POIKILOCYTOSIS SLIGHT; POLYCHROMASIA SLIGHT; TOXIC GRANULATION 1+; TOXIC VACUOLATION PRESENT
[2017-11-02] MEDS ORDERED: METOPROLOL SUCCINATE 50 MG TAB.SR.24H PO ONE ×2 (09:30→21:15)
[2017-11-02] MEDS: FLUTICASONE NASAL SPRAY 50 MCG/SPRY 120 SPRAY/16 GM NASL SCH (10:44)
[2017-11-02] MEDS: FUROSEMIDE INJ/PF 20 MG/2 ML SDV IV SCH ×2 (10:45→21:36)
[2017-11-02] MEDS: MORPHINE SULFATE SR 30 MG TABLET PO SCH ×2 (10:46→21:37)
[2017-11-02] MEDS: LISINOPRIL 5 MG TABLET PO SCH (10:49)
[2017-11-02] MEDS: LORATADINE 10 MG TABLET PO SCH (10:50)
--- NOTE | 2017-11-02 14:03 | PDOC PROGRESS REPORT ---
Subjective Progress Note for:: 11/02/17 Subjective:: Patient relates that she is starting to feel breathing better and less short of breath Review of system All organ systems evaluated and negative except as in subjective All significant laboratories and diagnostics have been reviewed Reason For Visit: AECOPD Physical Exam Vital Signs: Temp Pulse Resp BP Pulse Ox 97.3 F 128 H 20 136/81 H 99 11/02/17 03:32 11/02/17 03:32 11/02/17 03:32 11/02/17 03:32 11/02/17 03:32 Intake & Output 11/01/17 11/02/17 11/03/17 06:59 06:59 06:59 Intake Total 468 Balance 468 Weight 68 kg 67.1 kg General appearance: PRESENT: cooperative, well-developed, well-nourished Head exam: PRESENT: atraumatic, normocephalic Eye exam: PRESENT: conjunctiva pink, EOMI, PERRLA Ear exam: PRESENT: normal external ear exam Neck exam: PRESENT: full ROM. ABSENT: JVD, lymphadenopathy, tenderness Respiratory exam: PRESENT: rhonchi, other - Improvement of movement of air Cardiovascular exam: PRESENT: RRR. ABSENT: diastolic murmur, systolic murmur Vascular exam: PRESENT: normal capillary refill GI/Abdominal exam: PRESENT: normal bowel sounds, soft. ABSENT: tenderness Extremities exam: PRESENT: full ROM. ABSENT: pedal edema Musculoskeletal exam: PRESENT: ambulatory Neurological exam: PRESENT: alert, awake, oriented to person, oriented to place , oriented to time, oriented to situation, CN II-XII grossly intact Psychiatric exam: PRESENT: appropriate affect, normal mood Skin exam: PRESENT: normal color Results Laboratory Results: 11/01/17 07:03 11/01/17 07:03 11/01/17 11/01/17 07:03 07:03 WBC 9.1 RBC 3.82 Hgb 11.2 L Hct 33.8 L MCV 89 MCH 29.3 MCHC 33.2 RDW 13.3 Plt Count 221 Seg Neutrophils % Not Reportable Lymphocytes % Not Reportable Monocytes % Not Reportable Eosinophils % Not Reportable Basophils % Not Reportable Absolute Neutrophils Not Reportable Absolute Lymphocytes Not Reportable Absolute Monocytes Not Reportable Absolute Eosinophils Not Reportable Absolute Basophils Not Reportable Sodium 137.7 Potassium 4.5 Chloride 95 L Carbon Dioxide 26 Anion Gap 17 BUN 41 H Creatinine 0.87 Est GFR ( Amer) > 60 Est GFR (Non-Af Amer) > 60 Glucose 149 H Calcium 9.8 Magnesium 2.5 H Impressions: Chest X-Ray 10/31/17 14:31 IMPRESSION: No significant interval change. No acute findings. Other findings as noted above Assessment & Plan - Diagnosis (1) Acute exacerbation of chronic obstructive pulmonary disease (COPD) Is this a current diagnosis for this admission?: Yes Plan: Patient still requiring oxygen supplementation 21/01. Flu still pending. Continue DuoNeb's, Mucinex and decrease IV steroid dose (2) Acute bronchitis Qualifiers: Bronchitis organism: unspecified organism Qualified Code(s): J20.9 - Acute bronchitis, unspecified Is this a current diagnosis for this admission?: Yes Plan: Continue Zithromax (3) Chronic respiratory failure Qualifiers: Respiratory failure complication: hypoxia Qualified Code(s): J96.11 - Chronic respiratory failure with hypoxia Is this a current diagnosis for this admission?: Yes Plan: Continue with oxygen supplementation. Will wean off oxygen as tolerated. Patient having an acute component (4) CHF (congestive heart failure) Qualifiers: Heart failure type: diastolic Heart failure chronicity: acute on chronic Qualified Code(s): I50.33 - Acute on chronic diastolic (congestive) heart failure Is this a current diagnosis for this admission?: Yes Plan: Noted in the past had presented with congestive heart failure. BNP order an elevated. No recent echocardiograms and will order. Patient will be placed on low-dose Toprol-XL, lisinopril and IV Lasix. Will follow up response - Time Time Spent with patient: 15-24 minutes Medications reviewed and adjusted accordingly: Yes Anticipated discharge: Home with Homehealth Within: within 72 hours - Inpatient Certification Based on my medical assessment, after consideration of the patient's comorbidities, presenting symptoms, or acuity I expect that the services needed warrant INPATIENT care.: Yes I certify that my determination is in accordance with my understanding of Medicare's requirements for reasonable and necessary INPATIENT services [42 CFR 412.3e].: Yes Medical Necessity: Need Close Monitoring Due to Risk of Patient Decompensation, Need For Continuous Telemetry Monitoring, Need for Nebulizer Therapy and Monitoring of Response
[2017-11-02] MEDS: AZITHROMYCIN 250 MG TABLET PO SCH (17:10)
[2017-11-03 04:44] LABS: HEMATOCRIT 32.6 % (36.0-47.0); HEMOGLOBIN 10.6 g/dL (12.0-15.5); MEAN CORPUSCULAR HEMOGLOBIN 28.7 pg (27.0-33.4); MEAN CORPUSCULAR HGB CONC 32.4 g/dL (32.0-36.0); MEAN CORPUSCULAR VOLUME 89 fl (80-97); PLATELET COUNT 252 10^3/uL (150-450); RED BLOOD COUNT 3.69 10^6/uL (3.72-5.28); RED CELL DISTRIBUTION WIDTH 13.8 % (11.5-14.0); WHITE BLOOD COUNT 14.7 10^3/uL (4.0-10.5)
[2017-11-03 05:07] LABS: ANION GAP 15 (5-19); BLOOD UREA NITROGEN 52 mg/dL (7-20); CALCIUM 9.7 mg/dL (8.4-10.2); CARBON DIOXIDE 29 mmol/L (22-30); CHLORIDE 96 mmol/L (98-107); GLUCOSE 172 mg/dL (75-110); POTASSIUM 4.7 mmol/L (3.6-5.0); SODIUM 139.6 mmol/L (137-145)
[2017-11-03 05:29] LABS: ABSOLUTE LYMPHOCYTES# (MANUAL) 0.6 10^3/uL (0.5-4.7); ABSOLUTE NEUTROPHILS# (MANUAL) 13.1 10^3/uL (1.7-8.2); BAND NEUTROPHILS % (MANUAL) 9 % (3-5); BASOPHILS % (MANUAL) 0 % (0-2); EOSINOPHILS % (MANUAL) 0 % (0-6); LYMPHOCYTES % (MANUAL) 4 % (13-45); METAMYELOCYTES % (MANUAL) 2 % (0); MONOCYTES % (MANUAL) 7 % (3-13); SEGMENTED NEUTROPHILS % (MAN) 78 % (42-78); TOTAL CELLS COUNTED 100
[2017-11-03 05:30] LABS: PLATELET COMMENT ADEQUATE; POLYCHROMASIA SLIGHT; TOXIC GRANULATION 1+; TOXIC VACUOLATION PRESENT
[2017-11-03] MEDS: HEPARIN SOD (PORCINE) 5,000 UNIT/ML 1 ML SYRINGE SUBCUT SCH ×3 (06:26→21:56)
[2017-11-03] MEDS: IPRATROPIUM/ALBUTEROL 0.5-2.5 MG/3 ML AMPUL NEB SCH ×3 (07:53→19:37)
[2017-11-03] MEDS: LORATADINE 10 MG TABLET PO SCH (09:49)
[2017-11-03] MEDS: FLUTICASONE NASAL SPRAY 50 MCG/SPRY 120 SPRAY/16 GM NASL SCH (09:49)
[2017-11-03] MEDS: MORPHINE SULFATE SR 30 MG TABLET PO SCH ×2 (09:49→21:56)
[2017-11-03] MEDS: LISINOPRIL 5 MG TABLET PO SCH (09:49)
[2017-11-03] MEDS: PREDNISONE 20 MG TABLET PO SCH (10:29)
[2017-11-03] MEDS: AMLODIPINE BESYLATE 2.5 MG TABLET PO SCH (10:30)
[2017-11-03] MEDS: METOPROLOL SUCCINATE 50 MG TAB.SR.24H PO SCH (10:30)
[2017-11-03] MEDS: GUAIFENESIN 600 MG TABLET.SA PO SCH ×2 (10:30→21:56)
[2017-11-03] MEDS: SCOPOLAMINE HYDROBROMIDE 1.5 MG PATCH.TD72 TD SCH (11:50)
[2017-11-03] MEDS: BENZONATATE 100 MG CAPSULE PO PRN (14:01)
--- NOTE | 2017-11-03 14:57 | PDOC PROGRESS REPORT ---
Subjective Progress Note for:: 11/03/17 Subjective:: Patient states that she is starting to feel better. Interestingly patient sounds gargling Review of system All organ systems evaluated and negative except as in subjective All significant laboratories and diagnostics have been reviewed Reason For Visit: AECOPD Physical Exam Vital Signs: Temp Pulse Resp BP Pulse Ox 97.5 F 127 H 20 124/85 99 11/03/17 11:40 11/03/17 11:40 11/03/17 07:53 11/03/17 11:40 11/03/17 11:40 Intake & Output 11/02/17 11/03/17 11/04/17 06:59 06:59 06:59 Intake Total 468 1210 Output Total 1200 Balance 468 10 Weight 67.1 kg 66.1 kg General appearance: PRESENT: no acute distress, cooperative, well-developed, well-nourished Head exam: PRESENT: atraumatic, normocephalic Eye exam: PRESENT: conjunctiva pink, EOMI, PERRLA Ear exam: PRESENT: normal external ear exam Mouth exam: PRESENT: moist Neck exam: PRESENT: full ROM. ABSENT: JVD, lymphadenopathy, tenderness Respiratory exam: PRESENT: decreased breath sounds, rales, unlabored, wheezes. ABSENT: tachypnea Cardiovascular exam: PRESENT: RRR. ABSENT: diastolic murmur, systolic murmur Vascular exam: PRESENT: normal capillary refill GI/Abdominal exam: PRESENT: normal bowel sounds, soft. ABSENT: tenderness Extremities exam: PRESENT: full ROM Musculoskeletal exam: PRESENT: ambulatory Neurological exam: PRESENT: alert, awake, oriented to person, oriented to place , oriented to time, oriented to situation, CN II-XII grossly intact Psychiatric exam: PRESENT: appropriate affect, normal mood Skin exam: PRESENT: intact, normal color Results Laboratory Results: 11/03/17 03:38 11/03/17 03:38 11/03/17 11/03/17 03:38 03:38 WBC 14.7 H RBC 3.69 L Hgb 10.6 L Hct 32.6 L MCV 89 MCH 28.7 MCHC 32.4 RDW 13.8 Plt Count 252 Seg Neutrophils % Not Reportable Lymphocytes % Not Reportable Monocytes % Not Reportable Eosinophils % Not Reportable Basophils % Not Reportable Absolute Neutrophils Not Reportable Absolute Lymphocytes Not Reportable Absolute Monocytes Not Reportable Absolute Eosinophils Not Reportable Absolute Basophils Not Reportable Sodium 139.6 Potassium 4.7 Chloride 96 L Carbon Dioxide 29 Anion Gap 15 BUN 52 H Creatinine 0.95 Est GFR ( Amer) > 60 Est GFR (Non-Af Amer) 57 L Glucose 172 H Calcium 9.7 Magnesium 2.3 Impressions: Chest X-Ray 10/31/17 14:31 IMPRESSION: No significant interval change. No acute findings. Other findings as noted above Assessment & Plan - Diagnosis (1) Acute exacerbation of chronic obstructive pulmonary disease (COPD) Is this a current diagnosis for this admission?: Yes Plan: Patient still requiring oxygen supplementation 21/01. Continue DuoNeb's, Mucinex IV steroid dose, add Mucomyst, discontinue Zithromax and place on Rocephin. Order scopolamine patch (2) Acute bronchitis Qualifiers: Bronchitis organism: unspecified organism Qualified Code(s): J20.9 - Acute bronchitis, unspecified Is this a current diagnosis for this admission?: Yes Plan: Discontinue Zithromax and place on Rocephin. Order repeat chest xray. (3) Chronic respiratory failure Qualifiers: Respiratory failure complication: hypoxia Qualified Code(s): J96.11 - Chronic respiratory failure with hypoxia Is this a current diagnosis for this admission?: Yes Plan: Continue with oxygen supplementation. Will wean off oxygen as tolerated. Patient having an acute component (4) CHF (congestive heart failure) Qualifiers: Heart failure type: diastolic Heart failure chronicity: acute on chronic Qualified Code(s): I50.33 - Acute on chronic diastolic (congestive) heart failure Is this a current diagnosis for this admission?: Yes Plan: Noted in the past had presented with congestive heart failure. BNP order and elevated. No recent echocardiograms and ordered. Continue Toprol-XL, lisinopril and discontinue Lasix due to slight bump in renal function. Will follow up response - Time Time Spent with patient: 15-24 minutes Medications reviewed and adjusted accordingly: Yes Anticipated discharge: Home with Homehealth Within: within 72 hours - Inpatient Certification Based on my medical assessment, after consideration of the patient's comorbidities, presenting symptoms, or acuity I expect that the services needed warrant INPATIENT care.: Yes I certify that my determination is in accordance with my understanding of Medicare's requirements for reasonable and necessary INPATIENT services [42 CFR 412.3e].: Yes Medical Necessity: Need Close Monitoring Due to Risk of Patient Decompensation
[2017-11-03] MEDS ORDERED: CEFTRIAXONE 1 GM/D5W RTU 1 GM/50 ML RTUPB IV SCH (15:00)
--- NOTE | 2017-11-03 15:46 | RADIOLOGY REPORT (SQ) ---
EXAM DESCRIPTION: CHEST SINGLE VIEW COMPLETED DATE/TIME: 11/03/2017 3:32 pm REASON FOR STUDY: chest congestion COMPARISON: 10/31/2017 EXAM PARAMETERS: NUMBER OF VIEWS: One view. TECHNIQUE: Single frontal radiographic view of the chest acquired. RADIATION DOSE: NA LIMITATIONS: None. FINDINGS: LUNGS AND PLEURA: Minimal parenchymal opacity at the left base. Right lung is clear. MEDIASTINUM AND HILAR STRUCTURES: No masses. Contour normal. HEART AND VASCULAR STRUCTURES: Heart normal in size. Normal vasculature. BONES: No acute findings. HARDWARE: None in the chest. OTHER: No other significant finding. IMPRESSION: Interval development of minimal parenchymal opacity at the left base. TECHNICAL DOCUMENTATION: JOB ID: [id number] [employer]- All Rights Reserved Reading location - IP/workstation name: [email or web address]
[2017-11-03] MEDS ORDERED: CEFTRIAXONE SODIUM 1,000 MG in DEXTROSE 5%-WATER 50 ML IV SCH (18:00)
[2017-11-03] MEDS: ACETYLCYSTEINE 20% SOLN 800 MG/4 ML VIAL.NEB NEB SCH (19:37)
[2017-11-03] MEDS: LORAZEPAM 0.5 MG TABLET PO PRN (20:25)
[2017-11-03] MEDS: LACTULOSE SYRUP 20 GM/30 ML UDCUP PO SCH (21:56)
[2017-11-04] MEDS: ALBUTEROL SULFATE 0.083% NEB 2.5 MG/3 ML AMPUL NEB PRN (00:15)
[2017-11-04] MEDS: BENZONATATE 100 MG CAPSULE PO PRN ×2 (02:34→22:37)
[2017-11-04] MEDS: HEPARIN SOD (PORCINE) 5,000 UNIT/ML 1 ML SYRINGE SUBCUT SCH ×3 (05:41→22:33)
[2017-11-04 06:54] LABS: HEMATOCRIT 36.7 % (36.0-47.0); MEAN CORPUSCULAR HEMOGLOBIN 28.8 pg (27.0-33.4); MEAN CORPUSCULAR HGB CONC 32.7 g/dL (32.0-36.0); MEAN CORPUSCULAR VOLUME 88 fl (80-97); PLATELET COUNT 245 10^3/uL (150-450); RED BLOOD COUNT 4.16 10^6/uL (3.72-5.28); RED CELL DISTRIBUTION WIDTH 13.9 % (11.5-14.0); WHITE BLOOD COUNT 17.9 10^3/uL (4.0-10.5)
[2017-11-04 07:16] LABS: ABSOLUTE LYMPHOCYTES# (MANUAL) 0.7 10^3/uL (0.5-4.7); ABSOLUTE MONOCYTES # (MANUAL) 1.3 10^3/uL (0.1-1.4); ABSOLUTE NEUTROPHILS# (MANUAL) 15.9 10^3/uL (1.7-8.2); BAND NEUTROPHILS % (MANUAL) 4 % (3-5); BASOPHILS % (MANUAL) 0 % (0-2); EOSINOPHILS % (MANUAL) 0 % (0-6); LYMPHOCYTES % (MANUAL) 4 % (13-45); MONOCYTES % (MANUAL) 7 % (3-13); NUCLEATED RED BLOOD CELLS 1 /100 WBC (0); SEGMENTED NEUTROPHILS % (MAN) 85 % (42-78); TOTAL CELLS COUNTED 100
[2017-11-04 07:17] LABS: POLYCHROMASIA SLIGHT; TOXIC GRANULATION SLIGHT
[2017-11-04 07:18] LABS: PLATELET COMMENT ADEQUATE
[2017-11-04] MEDS: IPRATROPIUM/ALBUTEROL 0.5-2.5 MG/3 ML AMPUL NEB SCH ×3 (08:09→20:31)
[2017-11-04] MEDS: ACETYLCYSTEINE 20% SOLN 800 MG/4 ML VIAL.NEB NEB SCH ×2 (08:09→20:31)
[2017-11-04 08:33] LABS: ANION GAP 8 (5-19); BLOOD UREA NITROGEN 56 mg/dL (7-20); CARBON DIOXIDE 38 mmol/L (22-30); CHLORIDE 95 mmol/L (98-107); GLUCOSE 145 mg/dL (75-110); POTASSIUM 5.1 mmol/L (3.6-5.0); SODIUM 140.7 mmol/L (137-145)
[2017-11-04] MEDS: METOPROLOL SUCCINATE 50 MG TAB.SR.24H PO SCH (09:09)
[2017-11-04] MEDS: GUAIFENESIN 600 MG TABLET.SA PO SCH ×2 (09:09→22:33)
[2017-11-04] MEDS: LISINOPRIL 5 MG TABLET PO SCH (09:09)
[2017-11-04] MEDS: MORPHINE SULFATE SR 30 MG TABLET PO SCH ×2 (09:09→22:33)
[2017-11-04] MEDS: PREDNISONE 20 MG TABLET PO SCH (09:09)
[2017-11-04] MEDS: LORATADINE 10 MG TABLET PO SCH (09:09)
[2017-11-04] MEDS: FLUTICASONE NASAL SPRAY 50 MCG/SPRY 120 SPRAY/16 GM NASL SCH (09:10)
[2017-11-04] MEDS: AMLODIPINE BESYLATE 2.5 MG TABLET PO SCH (09:10)
--- NOTE | 2017-11-04 14:01 | PDOC PROGRESS REPORT ---
Subjective Progress Note for:: 11/04/17 Subjective:: Patient relates that her breathing is getting better. Review of system All organ systems evaluated and negative except as in subjective All significant laboratories and diagnostics have been reviewed Reason For Visit: AECOPD Physical Exam Vital Signs: Temp Pulse Resp BP Pulse Ox 97.4 F 112 H 19 126/87 H 93 11/03/17 23:54 11/04/17 02:00 11/04/17 00:00 11/03/17 23:54 11/04/17 00:00 Intake & Output 11/03/17 11/04/17 11/05/17 06:59 06:59 06:59 Intake Total 1210 578 Output Total 1200 1650 Balance 10 -1072 Weight 66.1 kg 66.4 kg General appearance: PRESENT: no acute distress, cooperative, well-developed, well-nourished Head exam: PRESENT: atraumatic, normocephalic Eye exam: PRESENT: conjunctiva pink, EOMI, PERRLA Ear exam: PRESENT: normal external ear exam Neck exam: PRESENT: full ROM. ABSENT: JVD, lymphadenopathy, tenderness Respiratory exam: PRESENT: crackles Cardiovascular exam: PRESENT: RRR. ABSENT: diastolic murmur, systolic murmur Vascular exam: PRESENT: normal capillary refill GI/Abdominal exam: PRESENT: normal bowel sounds, soft. ABSENT: tenderness Extremities exam: PRESENT: full ROM, pedal edema Musculoskeletal exam: PRESENT: ambulatory Neurological exam: PRESENT: alert, awake, oriented to person, oriented to place , oriented to time, oriented to situation, CN II-XII grossly intact Psychiatric exam: PRESENT: appropriate affect, normal mood Skin exam: PRESENT: intact, normal color Results Laboratory Results: 11/04/17 06:12 11/04/17 06:12 11/04/17 11/04/17 06:12 06:12 WBC 17.9 H RBC 4.16 Hgb 12.0 Hct 36.7 MCV 88 MCH 28.8 MCHC 32.7 RDW 13.9 Plt Count 245 Seg Neutrophils % Not Reportable Lymphocytes % Not Reportable Monocytes % Not Reportable Eosinophils % Not Reportable Basophils % Not Reportable Absolute Neutrophils Not Reportable Absolute Lymphocytes Not Reportable Absolute Monocytes Not Reportable Absolute Eosinophils Not Reportable Absolute Basophils Not Reportable Sodium Cancelled Potassium Cancelled Chloride Cancelled Carbon Dioxide Cancelled Anion Gap Cancelled BUN Cancelled Creatinine Cancelled Est GFR ( Amer) Cancelled Est GFR (Non-Af Amer) Cancelled Glucose Cancelled Calcium Cancelled 11/04/17 06:12 NT-Pro-B Natriuret Pep 63024 H Impressions: Chest X-Ray 11/03/17 00:00 IMPRESSION: Interval development of minimal parenchymal opacity at the left base. Assessment & Plan - Diagnosis (1) Acute exacerbation of chronic obstructive pulmonary disease (COPD) Is this a current diagnosis for this admission?: Yes Plan: Patient still requiring oxygen supplementation 21/01. Continue DuoNeb's, Mucinex , oral steroid dose, Mucomyst and scopolamine patch (2) Chronic respiratory failure Qualifiers: Respiratory failure complication: hypoxia Qualified Code(s): J96.11 - Chronic respiratory failure with hypoxia Is this a current diagnosis for this admission?: Yes Plan: Continue with oxygen supplementation. Will wean off oxygen as tolerated. Patient still having an acute component (3) CHF (congestive heart failure) Qualifiers: Heart failure type: diastolic Heart failure chronicity: acute on chronic Qualified Code(s): I50.33 - Acute on chronic diastolic (congestive) heart failure Is this a current diagnosis for this admission?: Yes Plan: Noted in the past had presented with congestive heart failure. BNP order and elevated. No recent echocardiograms and ordered. Continue Toprol-XL, lisinopril and discontinue Lasix due to slight bump in renal function. Will follow up response (4) PNA (pneumonia) Qualifiers: Pneumonia type: due to unspecified organism Laterality: left Lung location: lower lobe of lung Qualified Code(s): J18.1 - Lobar pneumonia, unspecified organism Is this a current diagnosis for this admission?: Yes Plan: Chest xray noted. To change IV antibiotic to Zosyn. - Time Time Spent with patient: 15-24 minutes Medications reviewed and adjusted accordingly: Yes Anticipated discharge: Home with Homehealth Within: within 72 hours - Inpatient Certification Based on my medical assessment, after consideration of the patient's comorbidities, presenting symptoms, or acuity I expect that the services needed warrant INPATIENT care.: Yes I certify that my determination is in accordance with my understanding of Medicare's requirements for reasonable and necessary INPATIENT services [42 CFR 412.3e].: Yes Medical Necessity: Need Close Monitoring Due to Risk of Patient Decompensation, Need for Nebulizer Therapy and Monitoring of Response, Need for IV Antibiotics
[2017-11-04] MEDS: PIPERACILLIN SODIUM/TAZOBACTAM 3.375 GM in NORMAL SALINE 100 ML IV SCH ×2 (15:18→22:33)
[2017-11-04] MEDS ORDERED: CEFTRIAXONE SODIUM 1,000 MG in DEXTROSE 5%-WATER 50 ML IV SCH (18:00)
--- NOTE | 2017-11-04 19:22 | XCELERA REPORT ---
[address] [address] Transthoracic Echocardiogram Report Name: JOSE DAVID DUMONT Age: 77 yrs Gender: Female : 1940 Patient Status: Inpatient Patient Location: [address] [place] [address] Study Date: 11/04/2017 10:28 AM Height: 63 in Weight: 147 lb BSA: 1.7 m2 Procedure: A complete two-dimensional transthoracic echocardiogram was performed (2D, M-mode, spectral and color flow Doppler). The study was technically difficult with many images being suboptimal in quality. Reason For Study: elevated bnp Ordering Physician: FABY ROMAN Performed By: Ty Abbasi Interpretation Summary The Ejection Fraction estimate is 50-55% Left ventricular systolic function is low normal. The left ventricle is grossly normal size. There is mild concentric left ventricular hypertrophy. Regional wall motion abnormalities cannot be excluded due to limited visualization. LV diastolic function could not be adequately assessed due to atrial fibrilation. The right ventricle is mild to moderately dilated. Right ventricular function cannot be assessed due to poor image quality. The right atrium is moderate to severely dilated. Borderline left atrial enlargement. There is a trace to mild amount of mitral regurgitation There is no mitral valve stenosis. No aortic regurgitation is present. There is no aortic valve stenosis There is a trace to mild amount of tricuspid regurgitation There is mild pulmonary hypertension by echo Right ventricular systolic pressure is estimated to be elevated at 30- 40mmHg. The aortic root is not well visualized but is probably normal size. The inferior vena cava was not well visualized There is no pericardial effusion. MMode/2D Measurements & Calculations RVDd: 1.9 cm LVIDd: 3.8 cm FS: 27.1 % Ao root diam: 2.5 cm IVSd: 0.56 cm LVIDs: 2.8 cm EDV(Teich): 62.4 ml LVPWd: 0.74 cm ESV(Teich): 29.0 ml Ao root area: 5.0 cm2 EF(Teich): 53.5 % Doppler Measurements & Calculations MV E max gabrielle: MV dec slope: Ao V2 max: LV V1 max P.7 cm/sec 95.3 cm/sec 1.2 mmHg MV A max gabrielle: 1018 cm/sec2 Ao max PG: LV V1 max: 31.0 cm/sec MV dec time: 3.6 mmHg 55.6 cm/sec MV E/A: 3.8 0.12 sec PA V2 max: TR max gabrielle: 54.6 cm/sec 267.7 cm/sec PA max P.2 mmHg TR max P.3 mmHg Left Ventricle The left ventricle is grossly normal size. There is mild concentric left ventricular hypertrophy. Left ventricular systolic function is low normal. The Ejection Fraction estimate is 50-55%. LV diastolic function could not be adequately assessed due to atrial fibrilation. Regional wall motion abnormalities cannot be excluded due to limited visualization. Right Ventricle The right ventricle is mild to moderately dilated. Right ventricular function cannot be assessed due to poor image quality. Atria The right atrium is moderate to severely dilated. Borderline left atrial enlargement. Interarterial septum not well visualized and not well dopplered. Cannot comment on ASD/PFO presence. Mitral Valve The mitral valve is not well visualized. There is no mitral valve stenosis. There is a trace to mild amount of mitral regurgitation. Aortic Valve The aortic valve is not well visualized secondary to technical limitations. There is no aortic valve stenosis. No aortic regurgitation is present. Tricuspid Valve The tricuspid valve is not well visualized secondary to technical limitations. There is no tricuspid stenosis. There is a trace to mild amount of tricuspid regurgitation. There is mild pulmonary hypertension by echo. Right ventricular systolic pressure is estimated to be elevated at 30-40mmHg. Pulmonic Valve The pulmonic valve is not well visualized. Great Vessels The aortic root is not well visualized but is probably normal size. The inferior vena cava was not well visualized. Effusions There is no pericardial effusion. : FABY ROMAN > Abdiel Restrepo
[2017-11-04] MEDS: LORAZEPAM 0.5 MG TABLET PO PRN (22:37)
[2017-11-04] MEDS: LACTULOSE SYRUP 20 GM/30 ML UDCUP PO SCH (22:39)
[2017-11-05] MEDS: PIPERACILLIN SODIUM/TAZOBACTAM 3.375 GM in NORMAL SALINE 100 ML IV SCH ×4 (02:52→20:00)
[2017-11-05] MEDS: HEPARIN SOD (PORCINE) 5,000 UNIT/ML 1 ML SYRINGE SUBCUT SCH (05:13)
[2017-11-05] MEDS: ONDANSETRON HCL INJ/PF 4 MG/2 ML SDV IV PRN (05:13)
[2017-11-05] MEDS: IPRATROPIUM/ALBUTEROL 0.5-2.5 MG/3 ML AMPUL NEB SCH ×3 (08:01→19:37)
[2017-11-05] MEDS: ACETYLCYSTEINE 20% SOLN 800 MG/4 ML VIAL.NEB NEB SCH ×2 (08:02→19:37)
[2017-11-05] MEDS: MORPHINE SULFATE SR 30 MG TABLET PO SCH ×2 (09:36→21:13)
[2017-11-05] MEDS: METOPROLOL SUCCINATE 50 MG TAB.SR.24H PO SCH (09:36)
[2017-11-05] MEDS: LORATADINE 10 MG TABLET PO SCH (09:36)
[2017-11-05] MEDS: AMLODIPINE BESYLATE 2.5 MG TABLET PO SCH (09:36)
[2017-11-05] MEDS: FLUTICASONE NASAL SPRAY 50 MCG/SPRY 120 SPRAY/16 GM NASL SCH (09:36)
[2017-11-05] MEDS: GUAIFENESIN 600 MG TABLET.SA PO SCH ×2 (09:36→21:13)
[2017-11-05] MEDS: LISINOPRIL 5 MG TABLET PO SCH (09:36)
[2017-11-05] MEDS: PREDNISONE 20 MG TABLET PO SCH (09:36)
[2017-11-05 11:34] LABS: ANION GAP 10 (5-19); BLOOD UREA NITROGEN 41 mg/dL (7-20); CALCIUM 9.7 mg/dL (8.4-10.2); CARBON DIOXIDE 30 mmol/L (22-30); CHLORIDE 98 mmol/L (98-107); GLUCOSE 107 mg/dL (75-110); POTASSIUM 4.8 mmol/L (3.6-5.0); SODIUM 138.4 mmol/L (137-145)
--- NOTE | 2017-11-05 14:09 | PDOC PROGRESS REPORT ---
Subjective Progress Note for:: 11/05/17 Subjective:: Patient relates that her breathing is getting better. Patient still not ambulatory and having poor appetite Review of system All organ systems evaluated and negative except as in subjective All significant laboratories and diagnostics have been reviewed Reason For Visit: AECOPD Physical Exam Vital Signs: Temp Pulse Resp BP Pulse Ox 97.8 F 129 H 18 120/59 L 98 11/05/17 04:00 11/05/17 08:03 11/05/17 08:03 11/05/17 04:00 11/05/17 08:03 Intake & Output 11/04/17 11/05/17 11/06/17 06:59 06:59 06:59 Intake Total 578 310 Output Total 1650 1100 Balance -1072 -790 Weight 66.4 kg 65.6 kg General appearance: PRESENT: no acute distress, cooperative, well-developed, well-nourished Head exam: PRESENT: atraumatic, normocephalic Eye exam: PRESENT: conjunctiva pink, EOMI, PERRLA Ear exam: PRESENT: normal external ear exam Mouth exam: PRESENT: moist Neck exam: PRESENT: full ROM. ABSENT: JVD, lymphadenopathy, tenderness Respiratory exam: PRESENT: other - Improvement of movement of air with scattered wheezes Cardiovascular exam: PRESENT: irregular rhythm. ABSENT: diastolic murmur, systolic murmur Vascular exam: PRESENT: normal capillary refill GI/Abdominal exam: PRESENT: normal bowel sounds, soft. ABSENT: tenderness Extremities exam: PRESENT: full ROM. ABSENT: pedal edema Musculoskeletal exam: ABSENT: ambulatory Neurological exam: PRESENT: alert, awake, oriented to person, oriented to place , oriented to time, oriented to situation, CN II-XII grossly intact Psychiatric exam: PRESENT: depressed Skin exam: PRESENT: intact, pallor Results Laboratory Results: 11/04/17 06:12 11/04/17 08:10 11/04/17 06:12 NT-Pro-B Natriuret Pep 57262 H Impressions: Chest X-Ray 11/03/17 00:00 IMPRESSION: Interval development of minimal parenchymal opacity at the left base. Assessment & Plan - Diagnosis (1) Acute exacerbation of chronic obstructive pulmonary disease (COPD) Is this a current diagnosis for this admission?: Yes Plan: Continue DuoNeb's, prednisone, Mucomyst, Mucinex, scopolamine patch and add Advair (2) Chronic respiratory failure Qualifiers: Respiratory failure complication: hypoxia Qualified Code(s): J96.11 - Chronic respiratory failure with hypoxia Is this a current diagnosis for this admission?: Yes Plan: Continue with oxygen supplementation. Will wean off oxygen as tolerated. Patient still having an acute component (3) CHF (congestive heart failure) Qualifiers: Heart failure type: diastolic Heart failure chronicity: acute on chronic Qualified Code(s): I50.33 - Acute on chronic diastolic (congestive) heart failure Is this a current diagnosis for this admission?: Yes Plan: Noted in the past had presented with congestive heart failure. BNP order and elevated. Echocardiogram results noted. EF 50-55%. My impression is that congestive heart failure relates to a diastolic dysfunction. Continue Toprol-XL , lisinopril and Will change Norvasc 2 Cardizem to keep heart rate on the lower end. Patient of Lasix because of bump in kidney functions (4) PNA (pneumonia) Qualifiers: Pneumonia type: due to unspecified organism Laterality: left Lung location: lower lobe of lung Qualified Code(s): J18.1 - Lobar pneumonia, unspecified organism Is this a current diagnosis for this admission?: Yes Plan: Chest xray noted. Continue Zosyn (5) Atrial fibrillation Qualifiers: Atrial fibrillation type: paroxysmal Qualified Code(s): I48.0 - Paroxysmal atrial fibrillation Is this a current diagnosis for this admission?: Yes Plan: Stable. Add Eliquis (6) CANDICE (acute kidney injury) Is this a current diagnosis for this admission?: Yes Plan: Due to overdiuresis and improving (7) Debility Is this a current diagnosis for this admission?: Yes Plan: Order physical therapy - Time Time Spent with patient: 15-24 minutes Medications reviewed and adjusted accordingly: Yes Anticipated discharge: Home Within: within 48 hours - Inpatient Certification Based on my medical assessment, after consideration of the patient's comorbidities, presenting symptoms, or acuity I expect that the services needed warrant INPATIENT care.: Yes I certify that my determination is in accordance with my understanding of Medicare's requirements for reasonable and necessary INPATIENT services [42 CFR 412.3e].: Yes Medical Necessity: Need Close Monitoring Due to Risk of Patient Decompensation, Need for Nebulizer Therapy and Monitoring of Response, Need for IV Antibiotics
[2017-11-05 14:20] LABS: HEMATOCRIT 35.1 % (36.0-47.0); HEMOGLOBIN 11.3 g/dL (12.0-15.5); MEAN CORPUSCULAR HEMOGLOBIN 28.5 pg (27.0-33.4); MEAN CORPUSCULAR HGB CONC 32.1 g/dL (32.0-36.0); MEAN CORPUSCULAR VOLUME 89 fl (80-97); PLATELET COUNT 272 10^3/uL (150-450); RED BLOOD COUNT 3.95 10^6/uL (3.72-5.28); RED CELL DISTRIBUTION WIDTH 13.5 % (11.5-14.0); WHITE BLOOD COUNT 19.5 10^3/uL (4.0-10.5)
[2017-11-05 14:49] LABS: ABSOLUTE LYMPHOCYTES# (MANUAL) 1.4 10^3/uL (0.5-4.7); ABSOLUTE MONOCYTES # (MANUAL) 0.8 10^3/uL (0.1-1.4); ABSOLUTE NEUTROPHILS# (MANUAL) 17.4 10^3/uL (1.7-8.2); BAND NEUTROPHILS % (MANUAL) 1 % (3-5); BASOPHILS % (MANUAL) 0 % (0-2); EOSINOPHILS % (MANUAL) 0 % (0-6); LYMPHOCYTES % (MANUAL) 7 % (13-45); METAMYELOCYTES % (MANUAL) 1 % (0); MONOCYTES % (MANUAL) 4 % (3-13); SEGMENTED NEUTROPHILS % (MAN) 87 % (42-78); TOTAL CELLS COUNTED 100
[2017-11-05 14:51] LABS: POLYCHROMASIA SLIGHT; TOXIC GRANULATION 1+
[2017-11-05 14:52] LABS: PLATELET COMMENT ADEQUATE
[2017-11-05] MEDS: FLUTICASONE/SALMETEROL DISKUS 500-50 MCG/DOSE IH SCH ×2 (15:30→21:13)
[2017-11-05] MEDS: APIXABAN 5 MG TABLET PO SCH (18:46)
[2017-11-05] MEDS: LACTULOSE SYRUP 20 GM/30 ML UDCUP PO SCH (21:14)
[2017-11-06] MEDS: LORAZEPAM 0.5 MG TABLET PO PRN (01:34)
[2017-11-06] MEDS: BENZONATATE 100 MG CAPSULE PO PRN (01:35)
[2017-11-06] MEDS: PIPERACILLIN SODIUM/TAZOBACTAM 3.375 GM in NORMAL SALINE 100 ML IV SCH ×2 (02:35→08:27)
[2017-11-06 07:28] LABS: ANION GAP 7 (5-19); BLOOD UREA NITROGEN 28 mg/dL (7-20); CALCIUM 9.4 mg/dL (8.4-10.2); CARBON DIOXIDE 34 mmol/L (22-30); CHLORIDE 99 mmol/L (98-107); GLUCOSE 96 mg/dL (75-110); POTASSIUM 4.5 mmol/L (3.6-5.0)
[2017-11-06] MEDS: IPRATROPIUM/ALBUTEROL 0.5-2.5 MG/3 ML AMPUL NEB SCH (08:31)
[2017-11-06] MEDS: ACETYLCYSTEINE 20% SOLN 800 MG/4 ML VIAL.NEB NEB SCH ×2 (08:31→20:11)
[2017-11-06 08:36] LABS: HEMATOCRIT 32.9 % (36.0-47.0); HEMOGLOBIN 10.6 g/dL (12.0-15.5); MEAN CORPUSCULAR HEMOGLOBIN 28.4 pg (27.0-33.4); MEAN CORPUSCULAR HGB CONC 32.2 g/dL (32.0-36.0); MEAN CORPUSCULAR VOLUME 88 fl (80-97); PLATELET COUNT 225 10^3/uL (150-450); RED BLOOD COUNT 3.73 10^6/uL (3.72-5.28); RED CELL DISTRIBUTION WIDTH 13.6 % (11.5-14.0)
[2017-11-06 08:57] LABS: ABSOLUTE LYMPHOCYTES# (MANUAL) 1.1 10^3/uL (0.5-4.7); ABSOLUTE MONOCYTES # (MANUAL) 0.4 10^3/uL (0.1-1.4); ABSOLUTE NEUTROPHILS# (MANUAL) 17.3 10^3/uL (1.7-8.2); BASOPHILS % (MANUAL) 0 % (0-2); EOSINOPHILS % (MANUAL) 1 % (0-6); LYMPHOCYTES % (MANUAL) 6 % (13-45); METAMYELOCYTES % (MANUAL) 1 % (0); MONOCYTES % (MANUAL) 2 % (3-13); SEGMENTED NEUTROPHILS % (MAN) 90 % (42-78); TOTAL CELLS COUNTED 100
[2017-11-06 08:59] LABS: PLATELET COMMENT ADEQUATE; RBC MORPHOLOGY COMMENT NORMO-CYTIC/CHROMIC; TOXIC GRANULATION SLIGHT
[2017-11-06] MEDS: LORATADINE 10 MG TABLET PO SCH (10:23)
[2017-11-06] MEDS: PREDNISONE 20 MG TABLET PO SCH (10:23)
[2017-11-06] MEDS: LISINOPRIL 5 MG TABLET PO SCH (10:23)
[2017-11-06] MEDS: GUAIFENESIN 600 MG TABLET.SA PO SCH ×2 (10:23→22:25)
[2017-11-06] MEDS: AMLODIPINE BESYLATE 2.5 MG TABLET PO SCH (10:23)
[2017-11-06] MEDS: METOPROLOL SUCCINATE 50 MG TAB.SR.24H PO SCH ×2 (10:23→22:26)
[2017-11-06] MEDS: MORPHINE SULFATE SR 30 MG TABLET PO SCH ×2 (10:23→22:26)
[2017-11-06] MEDS: FLUTICASONE/SALMETEROL DISKUS 500-50 MCG/DOSE IH SCH ×2 (10:24→22:26)
[2017-11-06] MEDS: FLUTICASONE NASAL SPRAY 50 MCG/SPRY 120 SPRAY/16 GM NASL SCH (10:24)
[2017-11-06] MEDS: APIXABAN 5 MG TABLET PO SCH ×2 (10:24→17:37)
[2017-11-06] MEDS: SCOPOLAMINE HYDROBROMIDE 1.5 MG PATCH.TD72 TD SCH (12:43)
--- NOTE | 2017-11-06 13:38 | PDOC PROGRESS REPORT ---
Subjective Progress Note for:: 11/06/17 Subjective:: Patient states that her breathing is better. Noted that is somnolent today and admitted had lorazepam last night Review of system All organ systems evaluated and negative except as in subjective All significant diagnostics and laboratories have been reviewed Reason For Visit: AECOPD Physical Exam Vital Signs: Temp Pulse Resp BP Pulse Ox 97.7 F 101 H 20 115/62 94 11/06/17 03:49 11/06/17 08:32 11/06/17 08:32 11/06/17 03:49 11/06/17 08:32 Intake & Output 11/05/17 11/06/17 11/07/17 06:59 06:59 06:59 Intake Total 310 1210 Output Total 1100 Balance -790 1210 Weight 65.6 kg 66.7 kg General appearance: PRESENT: no acute distress, cooperative, well-developed, well-nourished Head exam: PRESENT: atraumatic, normocephalic Eye exam: PRESENT: conjunctiva pink, EOMI, PERRLA Ear exam: PRESENT: normal external ear exam Mouth exam: PRESENT: moist Neck exam: PRESENT: full ROM. ABSENT: JVD, lymphadenopathy, tenderness Respiratory exam: PRESENT: other - Adequate movement of air with scattered wheezes Cardiovascular exam: PRESENT: irregular rhythm. ABSENT: diastolic murmur, systolic murmur Vascular exam: PRESENT: normal capillary refill GI/Abdominal exam: PRESENT: normal bowel sounds, soft. ABSENT: tenderness Extremities exam: PRESENT: full ROM. ABSENT: pedal edema Musculoskeletal exam: PRESENT: ambulatory Neurological exam: PRESENT: alert, awake, oriented to person, oriented to place , oriented to time, oriented to situation, CN II-XII grossly intact Psychiatric exam: PRESENT: appropriate affect, normal mood Skin exam: PRESENT: intact, normal color Results Laboratory Results: 11/06/17 07:05 11/06/17 07:05 11/05/17 11/05/17 11/06/17 11:00 11:00 07:05 WBC 19.5 H RBC 3.95 Hgb 11.3 L Hct 35.1 L MCV 89 MCH 28.5 MCHC 32.1 RDW 13.5 Plt Count 272 Seg Neutrophils % Not Reportable Lymphocytes % Not Reportable Monocytes % Not Reportable Eosinophils % Not Reportable Basophils % Not Reportable Absolute Neutrophils Not Reportable Absolute Lymphocytes Not Reportable Absolute Monocytes Not Reportable Absolute Eosinophils Not Reportable Absolute Basophils Not Reportable Sodium 140.0 Potassium 4.5 Chloride 99 Carbon Dioxide 34 H Anion Gap 7 BUN 28 H Creatinine 0.91 Est GFR ( Amer) > 60 Est GFR (Non-Af Amer) > 60 Glucose 96 Calcium 9.4 Magnesium 2.2 11/06/17 11/06/17 07:05 07:05 WBC 19.0 H RBC 3.73 Hgb 10.6 L Hct 32.9 L MCV 88 MCH 28.4 MCHC 32.2 RDW 13.6 Plt Count 225 Seg Neutrophils % Not Reportable Lymphocytes % Not Reportable Monocytes % Not Reportable Eosinophils % Not Reportable Basophils % Not Reportable Absolute Neutrophils Not Reportable Absolute Lymphocytes Not Reportable Absolute Monocytes Not Reportable Absolute Eosinophils Not Reportable Absolute Basophils Not Reportable Sodium Potassium Chloride Carbon Dioxide Anion Gap BUN Creatinine Est GFR ( Amer) Est GFR (Non-Af Amer) Glucose Calcium Magnesium 2.1 11/04/17 06:12 NT-Pro-B Natriuret Pep [id number] H Impressions: Chest X-Ray 11/03/17 00:00 IMPRESSION: Interval development of minimal parenchymal opacity at the left base. Assessment & Plan - Diagnosis (1) Acute exacerbation of chronic obstructive pulmonary disease (COPD) Is this a current diagnosis for this admission?: Yes Plan: Change DuoNeb's to as needed, decrease prednisone dose, discontinue Mucomyst, continue Mucinex andscopolamine patch. Continue Advair and add Spiriva (2) Chronic respiratory failure Qualifiers: Respiratory failure complication: hypoxia Qualified Code(s): J96.11 - Chronic respiratory failure with hypoxia Is this a current diagnosis for this admission?: Yes Plan: Continue with oxygen supplementation. Will wean off oxygen as tolerated. Had acute component on admission (3) CHF (congestive heart failure) Qualifiers: Heart failure type: diastolic Heart failure chronicity: acute on chronic Qualified Code(s): I50.33 - Acute on chronic diastolic (congestive) heart failure Is this a current diagnosis for this admission?: Yes Plan: Noted in the past had presented with congestive heart failure. BNP order and elevated. Echocardiogram results noted. EF 50-55%. My impression is that congestive heart failure relates to a diastolic dysfunction. Continue Toprol-XL but to increase dose. Continue lisinopril and discontinue Norvasc. Had contemplated Cardizem but opted not to. To place patient on Lasix orally. Continue trending renal (4) PNA (pneumonia) Qualifiers: Pneumonia type: due to unspecified organism Laterality: left Lung location: lower lobe of lung Qualified Code(s): J18.1 - Lobar pneumonia, unspecified organism Is this a current diagnosis for this admission?: Yes Plan: Chest xray noted. Discontinue Zosyn and place on Augmentin (5) Atrial fibrillation Qualifiers: Atrial fibrillation type: paroxysmal Qualified Code(s): I48.0 - Paroxysmal atrial fibrillation Is this a current diagnosis for this admission?: Yes Plan: Heart rate a bit on the high side. To change Toprol to 50 mg. 12 hours. Order TSH. Continue Eliquis (6) CANDICE (acute kidney injury) Is this a current diagnosis for this admission?: Yes Plan: Due to overdiuresis and improving (7) Debility Is this a current diagnosis for this admission?: Yes Plan: Continue physical therapy. Patient wishes to go back home on discharge (8) Leukocytosis Qualifiers: Leukocytosis type: unspecified Qualified Code(s): D72.829 - Elevated white blood cell count, unspecified Is this a current diagnosis for this admission?: Yes Plan: Likely due to demargination of neutrophils by steroid - Time Time Spent with patient: 15-24 minutes Medications reviewed and adjusted accordingly: Yes Anticipated discharge: Home with Homehealth Within: within 48 hours - Inpatient Certification Based on my medical assessment, after consideration of the patient's comorbidities, presenting symptoms, or acuity I expect that the services needed warrant INPATIENT care.: Yes I certify that my determination is in accordance with my understanding of Medicare's requirements for reasonable and necessary INPATIENT services [42 CFR 412.3e].: Yes Medical Necessity: Significant Comorbidiites Make Outpatient Treatment Too Risky , Need Close Monitoring Due to Risk of Patient Decompensation, Need for Nebulizer Therapy and Monitoring of Response
[2017-11-06] MEDS: AMOXICILLIN TR/POT CLAVULANATE 500-125 MG TAB PO SCH ×2 (14:54→22:26)
[2017-11-06] MEDS ORDERED: PREDNISONE 20 MG TABLET PO ONE (15:00)
[2017-11-06] MEDS ORDERED: FUROSEMIDE 20 MG TABLET PO ONE (15:00)
[2017-11-06] MEDS ORDERED: METOPROLOL SUCCINATE 50 MG TAB.SR.24H PO ONE (15:15)
[2017-11-06] MEDS: TIOTROPIUM BROMIDE DPI 5 CAP/KIT (18 MCG/CAP) IH SCH (17:35)
[2017-11-06] MEDS: ALBUTEROL SULFATE 0.083% NEB 2.5 MG/3 ML AMPUL NEB PRN (20:10)
[2017-11-06] MEDS: LACTULOSE SYRUP 20 GM/30 ML UDCUP PO SCH (22:29)
[2017-11-07] MEDS: AMOXICILLIN TR/POT CLAVULANATE 500-125 MG TAB PO SCH ×3 (05:55→22:50)
[2017-11-07 06:46] LABS: HEMATOCRIT 32.7 % (36.0-47.0); HEMOGLOBIN 10.6 g/dL (12.0-15.5); MEAN CORPUSCULAR HEMOGLOBIN 28.5 pg (27.0-33.4); MEAN CORPUSCULAR HGB CONC 32.5 g/dL (32.0-36.0); MEAN CORPUSCULAR VOLUME 88 fl (80-97); PLATELET COUNT 196 10^3/uL (150-450); RED BLOOD COUNT 3.73 10^6/uL (3.72-5.28); RED CELL DISTRIBUTION WIDTH 13.7 % (11.5-14.0); WHITE BLOOD COUNT 20.7 10^3/uL (4.0-10.5)
[2017-11-07 07:12] LABS: ANION GAP 10 (5-19); BLOOD UREA NITROGEN 29 mg/dL (7-20); CALCIUM 9.3 mg/dL (8.4-10.2); CARBON DIOXIDE 30 mmol/L (22-30); CHLORIDE 97 mmol/L (98-107); GLUCOSE 131 mg/dL (75-110); POTASSIUM 5.1 mmol/L (3.6-5.0)
[2017-11-07 07:55] LABS: ABSOLUTE LYMPHOCYTES# (MANUAL) 0.2 10^3/uL (0.5-4.7); ABSOLUTE MONOCYTES # (MANUAL) 0.4 10^3/uL (0.1-1.4); ABSOLUTE NEUTROPHILS# (MANUAL) 20.1 10^3/uL (1.7-8.2); BASOPHILS % (MANUAL) 0 % (0-2); EOSINOPHILS % (MANUAL) 0 % (0-6); LYMPHOCYTES % (MANUAL) 1 % (13-45); MONOCYTES % (MANUAL) 2 % (3-13); SEGMENTED NEUTROPHILS % (MAN) 97 % (42-78); TOTAL CELLS COUNTED 100
[2017-11-07 07:56] LABS: HYPOCHROMASIA 1+; OVALOCYTES 1+; PLATELET COMMENT ADEQUATE; POIKILOCYTOSIS 1+; POLYCHROMASIA SLIGHT
[2017-11-07] MEDS: ALBUTEROL SULFATE 0.083% NEB 2.5 MG/3 ML AMPUL NEB PRN ×2 (08:50→19:49)
[2017-11-07] MEDS: ACETYLCYSTEINE 20% SOLN 800 MG/4 ML VIAL.NEB NEB SCH ×2 (08:50→19:49)
[2017-11-07] MEDS: ONDANSETRON HCL INJ/PF 4 MG/2 ML SDV IV PRN (08:56)
[2017-11-07] MEDS: METOPROLOL SUCCINATE 50 MG TAB.SR.24H PO SCH ×2 (08:58→22:50)
[2017-11-07] MEDS: APIXABAN 5 MG TABLET PO SCH ×2 (08:58→17:57)
[2017-11-07] MEDS: LISINOPRIL 5 MG TABLET PO SCH (09:00)
[2017-11-07] MEDS: FUROSEMIDE 20 MG TABLET PO SCH (09:00)
[2017-11-07] MEDS: PREDNISONE 20 MG TABLET PO SCH (09:00)
[2017-11-07] MEDS: LORATADINE 10 MG TABLET PO SCH (09:01)
[2017-11-07] MEDS: GUAIFENESIN 600 MG TABLET.SA PO SCH ×2 (09:01→22:50)
[2017-11-07] MEDS: MORPHINE SULFATE SR 30 MG TABLET PO SCH (09:01)
[2017-11-07] MEDS: FLUTICASONE NASAL SPRAY 50 MCG/SPRY 120 SPRAY/16 GM NASL SCH (09:01)
[2017-11-07] MEDS: FLUTICASONE/SALMETEROL DISKUS 500-50 MCG/DOSE IH SCH ×2 (09:02→22:50)
--- NOTE | 2017-11-07 17:38 | PDOC PROGRESS REPORT ---
Subjective Progress Note for:: 11/07/17 Subjective:: -year-old female with past medical history of Atrial fibrillation Diastolic CHF Coronary artery disease Hypertension Hyperlipidemia COPD Ischemic stroke GERD Depression She presented to the hospital on October 31 complaining of progressively worsening shortness of breath and bilateral lower extremity edema. She was diagnosed with acute bronchitis and COPD exacerbation and acute diastolic CHF exacerbation. The patient was treated with steroids inhalers nebulizers and Lasix. Noted to have pneumonia and was started on antibiotics. She feels better overall although continues to feel weak and gets dyspnea with exertion. She was evaluated by physical therapy and the recommendation was subacute rehabilitation at a retirement facility. Reason For Visit: AECOPD Physical Exam Vital Signs: Temp Pulse Resp BP Pulse Ox 98.1 F 84 18 134/56 H 96 11/07/17 08:00 11/07/17 13:57 11/07/17 08:50 11/07/17 08:00 11/07/17 08:50 Intake & Output 11/06/17 11/07/17 11/08/17 06:59 06:59 06:59 Intake Total 1210 540 Balance 1210 540 Weight 66.7 kg 69.2 kg General appearance: PRESENT: no acute distress Head exam: PRESENT: normocephalic Ear exam: PRESENT: normal external ear exam Respiratory exam: PRESENT: clear to auscultation oswaldo, symmetrical, unlabored Cardiovascular exam: PRESENT: RRR GI/Abdominal exam: PRESENT: normal bowel sounds, soft. ABSENT: tenderness Rectal exam: PRESENT: deferred Extremities exam: ABSENT: tenderness Neurological exam: PRESENT: alert, awake Results Laboratory Results: 11/07/17 06:09 11/07/17 06:09 11/07/17 11/07/17 06:09 06:09 WBC 20.7 H RBC 3.73 Hgb 10.6 L Hct 32.7 L MCV 88 MCH 28.5 MCHC 32.5 RDW 13.7 Plt Count 196 Seg Neutrophils % Not Reportable Lymphocytes % Not Reportable Monocytes % Not Reportable Eosinophils % Not Reportable Basophils % Not Reportable Absolute Neutrophils Not Reportable Absolute Lymphocytes Not Reportable Absolute Monocytes Not Reportable Absolute Eosinophils Not Reportable Absolute Basophils Not Reportable Sodium 137.0 Potassium 5.1 H Chloride 97 L Carbon Dioxide 30 Anion Gap 10 BUN 29 H Creatinine 0.72 Est GFR ( Amer) > 60 Est GFR (Non-Af Amer) > 60 Glucose 131 H Calcium 9.3 11/04/17 06:12 NT-Pro-B Natriuret Pep 23808 H Impressions: Chest X-Ray 11/03/17 00:00 IMPRESSION: Interval development of minimal parenchymal opacity at the left base. Assessment & Plan - Diagnosis (1) Acute on chronic respiratory failure with hypoxemia Is this a current diagnosis for this admission?: Yes Plan: COPD exacerbation CHF exacerbation and pneumonia. (3) Pneumonia Qualifiers: Pneumonia type: due to unspecified organism Laterality: left Lung location: lower lobe of lung Qualified Code(s): J18.1 - Lobar pneumonia, unspecified organism Is this a current diagnosis for this admission?: Yes Plan: Continue Augmentin. (4) Acute diastolic CHF (congestive heart failure) Is this a current diagnosis for this admission?: Yes Plan: Continue Lasix. (5) CANDICE (acute kidney injury) Is this a current diagnosis for this admission?: Yes (6) Acute bronchitis Qualifiers: Bronchitis organism: unspecified organism Qualified Code(s): J20.9 - Acute bronchitis, unspecified Is this a current diagnosis for this admission?: Yes (7) Atrial fibrillation Qualifiers: Atrial fibrillation type: paroxysmal Qualified Code(s): I48.0 - Paroxysmal atrial fibrillation Is this a current diagnosis for this admission?: Yes Plan: On metoprolol and Eliquis. (8) Debility Is this a current diagnosis for this admission?: Yes Plan: Physical therapy, fall precautions, subacute rehab placement. - Time Time Spent with patient: 35 or more minutes
[2017-11-07] MEDS: LACTOBACILLUS ACIDOPHILUS 250 MG TAB PO SCH (17:57)
[2017-11-07] MEDS: TIOTROPIUM BROMIDE DPI 5 CAP/KIT (18 MCG/CAP) IH SCH (17:57)
[2017-11-07] MEDS: LACTULOSE SYRUP 20 GM/30 ML UDCUP PO SCH (22:51)
[2017-11-07] MEDS ORDERED: ZOLPIDEM TARTRATE 5 MG TABLET PO PRN (23:16)
[2017-11-07] MEDS ORDERED: OXYCODONE-ACETAMINOPHEN 5-325 MG TABLET PO PRN (23:16)
[2017-11-07] MEDS: LORAZEPAM 0.5 MG TABLET PO PRN (23:21)
[2017-11-08] MEDS: AMOXICILLIN TR/POT CLAVULANATE 500-125 MG TAB PO SCH ×3 (06:04→22:11)
[2017-11-08] MEDS: ALBUTEROL SULFATE 0.083% NEB 2.5 MG/3 ML AMPUL NEB PRN (07:56)
[2017-11-08] MEDS: ACETYLCYSTEINE 20% SOLN 800 MG/4 ML VIAL.NEB NEB SCH ×2 (07:56→20:45)
[2017-11-08] MEDS: FLUTICASONE/SALMETEROL DISKUS 500-50 MCG/DOSE IH SCH ×2 (11:05→22:12)
[2017-11-08] MEDS: FLUTICASONE NASAL SPRAY 50 MCG/SPRY 120 SPRAY/16 GM NASL SCH (11:05)
[2017-11-08] MEDS: PREDNISONE 20 MG TABLET PO SCH (11:05)
[2017-11-08] MEDS: LORATADINE 10 MG TABLET PO SCH (11:06)
[2017-11-08] MEDS: LISINOPRIL 5 MG TABLET PO SCH (11:06)
[2017-11-08] MEDS: LACTOBACILLUS ACIDOPHILUS 250 MG TAB PO SCH ×2 (11:06→18:08)
[2017-11-08] MEDS: GUAIFENESIN 600 MG TABLET.SA PO SCH ×2 (11:07→22:11)
[2017-11-08] MEDS: FUROSEMIDE 20 MG TABLET PO SCH (11:08)
[2017-11-08] MEDS: MORPHINE SULFATE SR 30 MG TABLET PO SCH ×2 (11:08→22:11)
[2017-11-08] MEDS: METOPROLOL SUCCINATE 50 MG TAB.SR.24H PO SCH ×2 (11:08→22:11)
[2017-11-08] MEDS: APIXABAN 5 MG TABLET PO SCH ×2 (11:08→18:08)
--- NOTE | 2017-11-08 12:33 | PDOC PROGRESS REPORT ---
Subjective Progress Note for:: 11/08/17 Subjective:: 77 year-old female with past medical history of Atrial fibrillation Diastolic CHF Coronary artery disease Hypertension Hyperlipidemia COPD Ischemic stroke GERD Depression She presented to the hospital on October 31 complaining of progressively worsening shortness of breath and bilateral lower extremity edema. She was diagnosed with acute bronchitis and COPD exacerbation and acute diastolic CHF exacerbation. The patient was treated with steroids inhalers nebulizers and Lasix. Noted to have pneumonia and was started on antibiotics. She feels better overall although continues to feel weak and gets dyspnea with exertion. She was evaluated by physical therapy and the recommendation was subacute rehabilitation at a care home facility, however she is refusing to go. Her is hospitalized at present and she has no help at home and needs standby assist. She will discuss with daughter to see if her family can arrange care at home upon discharge. Reason For Visit: AECOPD Physical Exam Vital Signs: Temp Pulse Resp BP Pulse Ox 97.8 F 97 17 119/54 L 97 11/08/17 08:18 11/08/17 08:18 11/08/17 08:18 11/08/17 08:18 11/08/17 08:18 Intake & Output 11/07/17 11/08/17 11/09/17 06:59 06:59 06:59 Intake Total 540 897 Balance 540 897 Weight 69.2 kg 66.1 kg General appearance: PRESENT: no acute distress Head exam: PRESENT: normocephalic Mouth exam: PRESENT: moist Respiratory exam: PRESENT: rhonchi, symmetrical, unlabored Cardiovascular exam: PRESENT: RRR GI/Abdominal exam: PRESENT: normal bowel sounds, soft. ABSENT: tenderness Rectal exam: PRESENT: deferred Extremities exam: ABSENT: pedal edema Neurological exam: PRESENT: alert, awake, oriented to person, oriented to place , oriented to time Psychiatric exam: PRESENT: appropriate affect Results Laboratory Results: 11/07/17 06:09 11/07/17 06:09 11/04/17 06:12 NT-Pro-B Natriuret Pep 66870 H Impressions: Chest X-Ray 11/03/17 00:00 IMPRESSION: Interval development of minimal parenchymal opacity at the left base. Assessment & Plan - Diagnosis (1) Acute on chronic respiratory failure with hypoxemia Is this a current diagnosis for this admission?: Yes Plan: COPD exacerbation CHF exacerbation and pneumonia. (2) Acute exacerbation of chronic obstructive pulmonary disease (COPD) Is this a current diagnosis for this admission?: Yes Plan: Steroid taper, nebs, oxygen, Augmentin, mucinex (3) Pneumonia Qualifiers: Pneumonia type: due to unspecified organism Laterality: left Lung location: lower lobe of lung Qualified Code(s): J18.1 - Lobar pneumonia, unspecified organism Is this a current diagnosis for this admission?: Yes Plan: Continue Augmentin. (4) Acute diastolic CHF (congestive heart failure) Is this a current diagnosis for this admission?: Yes Plan: Improved. Continue Lasix. (5) CANDICE (acute kidney injury) Is this a current diagnosis for this admission?: Yes Plan: Resolved (6) Acute bronchitis Qualifiers: Bronchitis organism: unspecified organism Qualified Code(s): J20.9 - Acute bronchitis, unspecified Is this a current diagnosis for this admission?: Yes (7) Atrial fibrillation Qualifiers: Atrial fibrillation type: paroxysmal Qualified Code(s): I48.0 - Paroxysmal atrial fibrillation Is this a current diagnosis for this admission?: Yes Plan: On metoprolol and Eliquis. (8) Debility Is this a current diagnosis for this admission?: Yes Plan: Physical therapy, fall precautions. - Time Time Spent with patient: 35 or more minutes
[2017-11-08] MEDS: TIOTROPIUM BROMIDE DPI 5 CAP/KIT (18 MCG/CAP) IH SCH (18:08)
[2017-11-08] MEDS: LACTULOSE SYRUP 20 GM/30 ML UDCUP PO SCH (22:11)
[2017-11-09] MEDS: AMOXICILLIN TR/POT CLAVULANATE 500-125 MG TAB PO SCH ×3 (06:04→22:19)
[2017-11-09 06:37] LABS: ANION GAP 10 (5-19); BLOOD UREA NITROGEN 19 mg/dL (7-20); CALCIUM 9.2 mg/dL (8.4-10.2); CARBON DIOXIDE 31 mmol/L (22-30); CHLORIDE 96 mmol/L (98-107); GLUCOSE 105 mg/dL (75-110); PHOSPHORUS 3.4 mg/dL (2.5-4.5); POTASSIUM 4.4 mmol/L (3.6-5.0); SODIUM 136.9 mmol/L (137-145)
[2017-11-09] MEDS: ACETYLCYSTEINE 20% SOLN 800 MG/4 ML VIAL.NEB NEB SCH ×2 (08:09→19:57)
[2017-11-09] MEDS: FUROSEMIDE 20 MG TABLET PO SCH (10:01)
[2017-11-09] MEDS: FLUTICASONE NASAL SPRAY 50 MCG/SPRY 120 SPRAY/16 GM NASL SCH (10:01)
[2017-11-09] MEDS: LACTOBACILLUS ACIDOPHILUS 250 MG TAB PO SCH ×2 (10:02→18:23)
[2017-11-09] MEDS: MORPHINE SULFATE SR 30 MG TABLET PO SCH ×2 (10:02→22:19)
[2017-11-09] MEDS: PREDNISONE 20 MG TABLET PO SCH (10:02)
[2017-11-09] MEDS: APIXABAN 5 MG TABLET PO SCH ×2 (10:02→18:23)
[2017-11-09] MEDS: GUAIFENESIN 600 MG TABLET.SA PO SCH ×2 (10:02→22:19)
[2017-11-09] MEDS: LISINOPRIL 5 MG TABLET PO SCH (10:02)
[2017-11-09] MEDS: FLUTICASONE/SALMETEROL DISKUS 500-50 MCG/DOSE IH SCH ×2 (10:02→22:19)
[2017-11-09] MEDS: LORATADINE 10 MG TABLET PO SCH (10:03)
[2017-11-09] MEDS: METOPROLOL SUCCINATE 50 MG TAB.SR.24H PO SCH ×2 (10:03→22:08)
[2017-11-09] MEDS: SCOPOLAMINE HYDROBROMIDE 1.5 MG PATCH.TD72 TD SCH (14:32)
--- NOTE | 2017-11-09 15:27 | PDOC PROGRESS REPORT ---
Subjective Progress Note for:: 11/09/17 Subjective:: 77 year-old female with past medical history of Atrial fibrillation Diastolic CHF Coronary artery disease Hypertension Hyperlipidemia COPD Ischemic stroke GERD Depression She presented to the hospital on October 31 complaining of progressively worsening shortness of breath and bilateral lower extremity edema. She was diagnosed with acute bronchitis and COPD exacerbation and acute diastolic CHF exacerbation. The patient was treated with steroids inhalers nebulizers and Lasix. Noted to have pneumonia and was started on antibiotics. She feels better overall although continues to feel weak and gets dyspnea with exertion. She was evaluated by physical therapy and the recommendation was subacute rehabilitation at a [facility], however she is not willing to go. The patient has no complaints today. She is awaiting family to come from out of town so that they can help her at home. Reason For Visit: AECOPD Physical Exam Vital Signs: Temp Pulse Resp BP Pulse Ox 97.9 F 95 20 111/56 L 97 11/09/17 11:34 11/09/17 14:00 11/09/17 11:34 11/09/17 11:34 11/09/17 11:34 Intake & Output 11/08/17 11/09/17 11/10/17 06:59 06:59 06:59 Intake Total 897 475 180 Balance 897 475 180 Weight 66.1 kg 68.2 kg General appearance: PRESENT: no acute distress Head exam: PRESENT: normocephalic Eye exam: PRESENT: PERRLA Ear exam: PRESENT: normal external ear exam Mouth exam: PRESENT: moist Neck exam: ABSENT: tracheal deviation Respiratory exam: PRESENT: clear to auscultation oswaldo, symmetrical, unlabored GI/Abdominal exam: PRESENT: normal bowel sounds, soft. ABSENT: tenderness Rectal exam: PRESENT: deferred Extremities exam: ABSENT: pedal edema Neurological exam: PRESENT: alert, awake, oriented to person, oriented to place , oriented to time, oriented to situation Psychiatric exam: PRESENT: appropriate affect Skin exam: ABSENT: rash Results Laboratory Results: 11/07/17 06:09 11/09/17 05:45 11/09/17 05:45 Sodium 136.9 L Potassium 4.4 Chloride 96 L Carbon Dioxide 31 H Anion Gap 10 BUN 19 Creatinine 0.58 Est GFR ( Amer) > 60 Est GFR (Non-Af Amer) > 60 Glucose 105 Calcium 9.2 Phosphorus 3.4 Magnesium 1.9 11/04/17 11/09/17 06:12 05:45 NT-Pro-B Natriuret Pep 21682 H 4340 H Impressions: Chest X-Ray 11/03/17 00:00 IMPRESSION: Interval development of minimal parenchymal opacity at the left base. Assessment & Plan - Diagnosis (1) Acute on chronic respiratory failure with hypoxemia Is this a current diagnosis for this admission?: Yes Plan: COPD exacerbation CHF exacerbation and pneumonia. (2) Acute exacerbation of chronic obstructive pulmonary disease (COPD) Is this a current diagnosis for this admission?: Yes Plan: Steroid taper, nebs, oxygen, Augmentin, mucinex (3) Pneumonia Qualifiers: Pneumonia type: due to unspecified organism Laterality: left Lung location: lower lobe of lung Qualified Code(s): J18.1 - Lobar pneumonia, unspecified organism Is this a current diagnosis for this admission?: Yes Plan: Continue Augmentin for a 7 day course of antibiotics. (4) Acute diastolic CHF (congestive heart failure) Is this a current diagnosis for this admission?: Yes Plan: Improved. Continue Lasix. (5) CANDICE (acute kidney injury) Is this a current diagnosis for this admission?: Yes Plan: Resolved (6) Atrial fibrillation Qualifiers: Atrial fibrillation type: paroxysmal Qualified Code(s): I48.0 - Paroxysmal atrial fibrillation Is this a current diagnosis for this admission?: Yes Plan: On metoprolol and Eliquis. (7) Debility Is this a current diagnosis for this admission?: Yes Plan: Physical therapy, fall precautions. - Time Time Spent with patient: 25-34 minutes
[2017-11-09] MEDS: TIOTROPIUM BROMIDE DPI 5 CAP/KIT (18 MCG/CAP) IH SCH (15:57)
[2017-11-09] MEDS ORDERED: PHENOL/SODIUM PHENOLATE 100 SPRAY/177 ML BOTTLE PO PRN (18:37)
[2017-11-09] MEDS ORDERED: PHENOL/SODIUM PHENOLATE 100 SPRAY/177 ML BOTTLE ONE (20:36)
[2017-11-09] MEDS: LORAZEPAM 0.5 MG TABLET PO PRN (22:24)
[2017-11-09] MEDS: LACTULOSE SYRUP 20 GM/30 ML UDCUP PO SCH (22:54)
[2017-11-10] MEDS: AMOXICILLIN TR/POT CLAVULANATE 500-125 MG TAB PO SCH ×3 (06:25→21:52)
[2017-11-10] MEDS: ACETYLCYSTEINE 20% SOLN 800 MG/4 ML VIAL.NEB NEB SCH ×2 (08:00→20:10)
[2017-11-10] MEDS: FLUTICASONE NASAL SPRAY 50 MCG/SPRY 120 SPRAY/16 GM NASL SCH (09:28)
[2017-11-10] MEDS: FLUTICASONE/SALMETEROL DISKUS 500-50 MCG/DOSE IH SCH ×2 (09:28→21:53)
[2017-11-10] MEDS: APIXABAN 5 MG TABLET PO SCH ×2 (09:28→17:45)
[2017-11-10] MEDS: GUAIFENESIN 600 MG TABLET.SA PO SCH ×2 (09:28→21:53)
[2017-11-10] MEDS: LACTOBACILLUS ACIDOPHILUS 250 MG TAB PO SCH ×2 (09:28→17:45)
[2017-11-10] MEDS: FUROSEMIDE 20 MG TABLET PO SCH (09:28)
[2017-11-10] MEDS: METOPROLOL SUCCINATE 50 MG TAB.SR.24H PO SCH ×2 (09:29→21:46)
[2017-11-10] MEDS: PREDNISONE 20 MG TABLET PO SCH (09:29)
[2017-11-10] MEDS: MORPHINE SULFATE SR 30 MG TABLET PO SCH ×2 (09:29→21:53)
[2017-11-10] MEDS: LORATADINE 10 MG TABLET PO SCH (09:29)
[2017-11-10] MEDS: LISINOPRIL 5 MG TABLET PO SCH (09:29)
--- NOTE | 2017-11-10 12:31 | PDOC PROGRESS REPORT ---
Subjective Progress Note for:: 11/10/17 Subjective:: 77 year-old female with past medical history of Atrial fibrillation Diastolic CHF Coronary artery disease Hypertension Hyperlipidemia COPD Ischemic stroke GERD Depression She presented to the hospital on October 31 complaining of progressively worsening shortness of breath and bilateral lower extremity edema. She was diagnosed with acute bronchitis and COPD exacerbation and acute diastolic CHF exacerbation. The patient was treated with steroids inhalers nebulizers and Lasix. Noted to have pneumonia and was started on antibiotics. She feels better overall although continues to feel weak and gets dyspnea with exertion. She was evaluated by physical therapy and the recommendation was subacute rehabilitation at a nursing home facility, however she is not willing to go. She is awaiting family to come from out of town so that they can help her at home. No complaints. No SOB/cough. Reason For Visit: AECOPD Physical Exam Vital Signs: Temp Pulse Resp BP Pulse Ox 97.9 F 98 18 121/65 97 11/10/17 08:00 11/10/17 08:00 11/10/17 08:00 11/10/17 08:00 11/10/17 08:00 Intake & Output 11/09/17 11/10/17 11/11/17 06:59 06:59 06:59 Intake Total 475 516 Output Total 0 Balance 475 516 Weight 68.2 kg 65.2 kg General appearance: PRESENT: no acute distress Head exam: PRESENT: normocephalic Eye exam: PRESENT: PERRLA Ear exam: PRESENT: normal external ear exam Mouth exam: PRESENT: moist Neck exam: ABSENT: tracheal deviation Respiratory exam: PRESENT: clear to auscultation oswaldo, symmetrical, unlabored Cardiovascular exam: PRESENT: RRR GI/Abdominal exam: PRESENT: normal bowel sounds, soft. ABSENT: tenderness Rectal exam: PRESENT: deferred Extremities exam: ABSENT: pedal edema Musculoskeletal exam: PRESENT: normal inspection Neurological exam: PRESENT: alert, awake, oriented to person, oriented to place Psychiatric exam: PRESENT: appropriate affect Skin exam: ABSENT: rash Results Laboratory Results: 11/07/17 06:09 11/09/17 05:45 11/04/17 11/09/17 06:12 05:45 NT-Pro-B Natriuret Pep 05897 H 4340 H Impressions: Chest X-Ray 11/03/17 00:00 IMPRESSION: Interval development of minimal parenchymal opacity at the left base. Assessment & Plan - Diagnosis (1) Acute on chronic respiratory failure with hypoxemia Is this a current diagnosis for this admission?: Yes Plan: COPD exacerbation CHF exacerbation and pneumonia. (2) Acute exacerbation of chronic obstructive pulmonary disease (COPD) Is this a current diagnosis for this admission?: Yes Plan: Steroid taper, nebs, oxygen, Augmentin, mucinex (3) Pneumonia Qualifiers: Pneumonia type: due to unspecified organism Laterality: left Lung location: lower lobe of lung Qualified Code(s): J18.1 - Lobar pneumonia, unspecified organism Is this a current diagnosis for this admission?: Yes Plan: Continue Augmentin for a 7 day course of antibiotics. (4) Acute diastolic CHF (congestive heart failure) Is this a current diagnosis for this admission?: Yes Plan: Improved. Continue Lasix. (5) CANDICE (acute kidney injury) Is this a current diagnosis for this admission?: Yes Plan: Resolved (6) Atrial fibrillation Qualifiers: Atrial fibrillation type: paroxysmal Qualified Code(s): I48.0 - Paroxysmal atrial fibrillation Is this a current diagnosis for this admission?: Yes Plan: On metoprolol and Eliquis. (7) Debility Is this a current diagnosis for this admission?: Yes Plan: Physical therapy, fall precautions. - Time Time Spent with patient: 25-34 minutes
[2017-11-10] MEDS: TIOTROPIUM BROMIDE DPI 5 CAP/KIT (18 MCG/CAP) IH SCH (17:45)
[2017-11-10] MEDS: ONDANSETRON HCL INJ/PF 4 MG/2 ML SDV IV PRN (20:38)
[2017-11-10] MEDS: LACTULOSE SYRUP 20 GM/30 ML UDCUP PO SCH (21:45)
[2017-11-10] MEDS: LORAZEPAM 0.5 MG TABLET PO PRN (21:55)
[2017-11-11] MEDS: AMOXICILLIN TR/POT CLAVULANATE 500-125 MG TAB PO SCH ×2 (05:37→16:17)
[2017-11-11] MEDS: ACETYLCYSTEINE 20% SOLN 800 MG/4 ML VIAL.NEB NEB SCH (08:31)
[2017-11-11] MEDS: APIXABAN 5 MG TABLET PO SCH (09:37)
[2017-11-11] MEDS: FLUTICASONE/SALMETEROL DISKUS 500-50 MCG/DOSE IH SCH (09:37)
[2017-11-11] MEDS: FUROSEMIDE 20 MG TABLET PO SCH (09:37)
[2017-11-11] MEDS: GUAIFENESIN 600 MG TABLET.SA PO SCH (09:37)
[2017-11-11] MEDS: LORATADINE 10 MG TABLET PO SCH (09:37)
[2017-11-11] MEDS: LACTOBACILLUS ACIDOPHILUS 250 MG TAB PO SCH (09:37)
[2017-11-11] MEDS: LISINOPRIL 5 MG TABLET PO SCH (09:37)
[2017-11-11] MEDS: FLUTICASONE NASAL SPRAY 50 MCG/SPRY 120 SPRAY/16 GM NASL SCH (09:37)
[2017-11-11] MEDS: PREDNISONE 20 MG TABLET PO SCH (09:38)
[2017-11-11] MEDS: MORPHINE SULFATE SR 30 MG TABLET PO SCH (09:38)
[2017-11-11] MEDS: METOPROLOL SUCCINATE 50 MG TAB.SR.24H PO SCH (09:38)
[2017-11-11] MEDS ORDERED: MAGNESIUM OXIDE 400 MG TABLET PO SCH (10:00)
--- NOTE | 2017-11-11 13:06 | PDOC DISCHARGE SUMMARY ---
General - Admit/Disc Date/PCP Admission Date/Primary Care Provider: 10/31/17 Discharge Date: 11/11/17 - Discharge Diagnosis (1) Acute on chronic respiratory failure with hypoxemia Is this a current diagnosis for this admission?: Yes (2) Acute exacerbation of chronic obstructive pulmonary disease (COPD) Is this a current diagnosis for this admission?: Yes (3) Pneumonia Is this a current diagnosis for this admission?: Yes (4) Acute diastolic CHF (congestive heart failure) Is this a current diagnosis for this admission?: Yes (5) CANDICE (acute kidney injury) Is this a current diagnosis for this admission?: Yes (6) Atrial fibrillation Is this a current diagnosis for this admission?: Yes (7) Debility Is this a current diagnosis for this admission?: Yes - Additional Information Resuscitation Status: Full Code Discharge Diet: Cardiac Discharge Activity: Activity As Tolerated, Balance Activity w/Rest, Weigh Daily Prescriptions: Albuterol Sulfate [Proair Respiclick] 90 mcg IH Q4HP PRN 30 Days #1 aer.pow.ba PRN Reason: Apixaban [Eliquis 5 mg Tablet] 5 mg PO BID 30 Days #60 tablet Fluticasone Propionate [Flonase Nasal [place] 50 Mcg/[place] 16 gm] 2 spray NASL DAILY 30 Days #1 spray.pump Fluticasone/Salmeterol [Advair 500-50 Diskus 14 Dose/Diskus] 1 inh IH Q12 30 Days #1 inhaler Tiotropium Gilead [Spiriva Handihaler 5 Cap/Kit (18 Mcg/Cap)] 1 cap IH DAILY@ 1600 30 Days #30 kit Home Medications: Metaxalone [Skelaxin 800 mg Tablet] 800 mg PO Q8HP PRN 01/14/13 Morphine Sulfate [Morphine Sulfate ER] 30 mg PO Q8 02/04/15 Oxycodone HCl/Acetaminophen [Oxycodone-Acetaminophen 10-325] 1 each PO Q8HP PRN 02/04/15 Atorvastatin Calcium [Lipitor 10 mg Tablet] 10 mg PO QHS #0 tablet 02/23/15 Aspirin [Aspirin EC] 81 mg PO DAILY 07/22/15 Cholecalciferol (Vitamin D3) [Vitamin D3] 2,000 unit PO DAILY 07/22/15 Ferrous Sulfate [Feosol 325 mg Tablet] 325 mg PO DAILY 07/22/15 Metoprolol Tartrate [Lopressor 50 mg Tablet] 50 mg PO Q12 07/22/15 Albuterol Sulfate [Proair HFA Inhalation Aerosol 8.5 gm MDI] 2 puff IH Q4HP PRN 10/31/17 Cetirizine HCl [Zyrtec 10 mg Tablet] 10 mg PO DAILYP PRN 10/31/17 Docusate Sodium [Colace 100 mg Capsule] 100 mg PO QPM 10/31/17 Fluoxetine HCl [Prozac 20 mg Capsule] 60 mg PO DAILY 10/31/17 Lorazepam [Ativan 0.5 mg Tablet] 0.5 mg PO BIDP PRN 10/31/17 Mesalamine [Lialda] 1.2 gm PO DAILY 10/31/17 Pantoprazole Sodium [Protonix] 40 mg PO DAILY 10/31/17 Promethazine HCl [Phenergan 25 mg Tablet] 25 mg PO Q12HP PRN 10/31/17 Spironolactone [Aldactone 25 mg Tablet] 25 mg PO DAILY 10/31/17 Albuterol Sulfate [Proair Respiclick] 90 mcg IH Q4HP PRN 30 Days #1 aer.pow.ba 11/11/17 Apixaban [Eliquis 5 mg Tablet] 5 mg PO BID 30 Days #60 tablet 11/11/17 Fluticasone Propionate [Flonase Nasal [place] 50 Mcg/[place] 16 gm] 2 spray NASL DAILY 30 Days #1 spray.pump 11/11/17 Fluticasone/Salmeterol [Advair 500-50 Diskus 14 Dose/Diskus] 1 inh IH Q12 30 Days #1 inhaler 11/11/17 Furosemide [Lasix 20 mg Tablet] 20 mg PO DAILY tablet 11/11/17 Lactobacillus Acidophilus [Bacid 250 mg Tablet] 250 mg PO BID tab 11/11/17 Lisinopril [Prinivil 5 mg Tablet] 5 mg PO DAILY tablet 11/11/17 Magnesium Oxide [Mag-Ox 400 mg Tablet] 400 mg PO DAILY tablet 11/11/17 Phenol/Sodium Phenolate [Chloraseptic Sore Throat [place] 177 ml] 1 spray PO Q4HP PRN bottle 11/11/17 Tiotropium Gilead [Spiriva Handihaler 5 Cap/Kit (18 Mcg/Cap)] 1 cap IH DAILY@ 1600 30 Days #30 kit 11/11/17 History of Present Illness History of Present Illness: 77-year-old female with past medical history of Atrial fibrillation Diastolic CHF Coronary artery disease Hypertension Hyperlipidemia COPD Ischemic stroke GERD Depression She presented to the hospital on October 31 complaining of progressively worsening shortness of breath and bilateral lower extremity edema. She was diagnosed with acute bronchitis and COPD exacerbation and acute diastolic CHF exacerbation. The patient was treated with steroids inhalers nebulizers and Lasix. the patient was noted to have pneumonia and was started on antibiotics. She was evaluated by physical therapy and the recommendation was subacute rehabilitation at a residential facility. The patient however, refuses to go to rehab and sstates that her family will care for her and requests home health and Home PT. She feels well and has no complaints. She was started on Eliquis for CVA prevention for Afib. Stable and ready for discharge home. Hospital Course Hospital Course: As above Physical Exam Vital Signs: Temp Pulse Resp BP Pulse Ox 97.7 F 97 16 108/41 L 94 11/11/17 08:02 11/11/17 08:02 11/11/17 08:02 11/11/17 08:02 11/11/17 08:02 Intake & Output 11/10/17 11/11/17 11/12/17 06:59 06:59 06:59 Intake Total 516 600 Output Total 0 Balance 516 600 Weight 65.2 kg 66.2 kg General appearance: PRESENT: no acute distress Respiratory exam: PRESENT: symmetrical, unlabored. ABSENT: crackles Extremities exam: ABSENT: pedal edema Results Laboratory Results: 11/07/17 06:09 11/09/17 05:45 11/04/17 11/09/17 06:12 05:45 NT-Pro-B Natriuret Pep [id number] H 4340 H Impressions: Chest X-Ray 11/03/17 00:00 IMPRESSION: Interval development of minimal parenchymal opacity at the left base. Qualifiers - * PATIENT BEING DISCHARGED WITH ANY OF THE FOLLOWING DIAGNOSIS: No Plan Time Spent: Greater than 30 Minutes
[2017-11-11 15:21] VITALS: BP 101/66
== END 2017-11-11 17:25 | disposition home health service (06) | DRG 190 ==
LOC: ER 14:28 → INTOOBSV 16:59 → EH 16:59 → OBSVTOIN 16:59 → UNDOADMOB 16:59 → EH 23:06 → 4S 23:06 → OBSVTOIN 11-01 09:47 → EH 11-01 09:47 → 4S 11-01 09:47 → 4W 11-11 12:04 → UNDODISIN 11-11 17:25
PROVIDERS: ADMIT Family Medicine; ATTEND Family Medicine
PROC: 3E0F73Z Introduction of Anti-inflammatory into Respiratory Tract, Via Natural or Artificial Opening (ICD-10-PCS; principal; 2017-10-31)
DX: J44.1 Chronic obstructive pulmonary disease with (acute) exacerbation (principal); J96.21 Acute and chronic respiratory failure with hypoxia; I50.33 Acute on chronic diastolic (congestive) heart failure; J18.1 Lobar pneumonia, unspecified organism; N17.9 Acute kidney failure, unspecified; I48.0 Paroxysmal atrial fibrillation; I25.10 Atherosclerotic heart disease of native coronary artery without angina pectoris; I11.0 Hypertensive heart disease with heart failure; E78.00 Pure hypercholesterolemia, unspecified; J44.9 Chronic obstructive pulmonary disease, unspecified; K21.9 Gastro-esophageal reflux disease without esophagitis; F32.9 Major depressive disorder, single episode, unspecified; J44.0 Chronic obstructive pulmonary disease with (acute) lower respiratory infection; J20.9 Acute bronchitis, unspecified; M19.90 Unspecified osteoarthritis, unspecified site; D72.829 Elevated white blood cell count, unspecified; T38.0X5A Adverse effect of glucocorticoids and synthetic analogues, initial encounter; I25.2 Old myocardial infarction; Z79.899 Other long term (current) drug therapy; Z86.73 Personal history of transient ischemic attack (TIA), and cerebral infarction without residual deficits; Z85.41 Personal history of malignant neoplasm of cervix uteri; Z90.49 Acquired absence of other specified parts of digestive tract; Z87.891 Personal history of nicotine dependence; Z79.82 Long term (current) use of aspirin; Z95.5 Presence of coronary angioplasty implant and graft; Z82.49 Family history of ischemic heart disease and other diseases of the circulatory system
CPT/HCPCS: 36415; 71045; 80048; 80053; 81001; 82550; 82803; 82962; 83605; 83735; 83880; 84100; 84443; 84484; 85025; 85610; 87040; 87086; 93005; 93010; 93306; 94640; 94660; 96360; 99285; G0378; G8978-GP; G8979-GP; J0696; J1644; J1940; J2405; J2543; J2920; J3490; J7040; J7512; J7620